=== PATIENT | female | born 1960 | race Caucasian/White ===

== ENCOUNTER → 2017-11-30 | Outpatient (CLI) | payer OTHER ==
--- NOTE | 2017-11-30 15:49 | US ---
EXAMINATION TYPE: US pelvic complete DATE OF EXAM: 11/30/2017 COMPARISON: NONE CLINICAL HISTORY: R60.0 Edema of Lower extremity. TECHNIQUE: Transabdominal (TA) Date of LMP: post menopausal, no HRT. EXAM MEASUREMENTS: Uterus: 6.5 x 3.0 x 5.4 cm Endometrial Stripe: 0.4 cm Right Ovary: 2.2 x 1.6 x 1.4 cm Left Ovary: 2.1 x 1.7 x 2.2 cm 1. Uterus: Anteverted heterogeneous 2. Endometrium: wnl 3. Right Ovary: wnl 4. Left Ovary: wnl 5. Bilateral Adnexa: wnl 6. Posterior cul-de-sac: no free fluid IMPRESSION: 1. Nonspecific uterine heterogeneity. No distinct uterine or adnexal mass.
== END | disposition home or self-care (01) ==
LOC: RADUSWWP 14:45
PROVIDERS: ATTEND Internal Medicine
DX: R60.0 Localized edema (principal)
CPT/HCPCS: 76856

== ENCOUNTER 2018-01-17 05:42 | Day surgery (SDC) | payer OTHER ==
[2018-01-10 13:01] VITALS: BMI 24.8
--- NOTE | 2018-01-16 19:07 | HP ---
HISTORY AND PHYSICAL REASON FOR ADMISSION: Surgery scheduled for 01/17/2018. Aleja Grimes is a 57-year-old patient seen with progressive left shoulder pain. Treatment options were discussed with her. She elected to proceed with arthroscopy. Consent regarding the procedure was obtained. PAST MEDICAL HISTORY: Asthma, hypertension, migraine headaches. PAST SURGICAL HISTORY: Right shoulder arthroscopy, foot surgery, knee arthroscopy. MEDICATIONS: Fioricet/codeine, Topamax, Xanax, and Effexor. ALLERGIES: DILAUDID AND FLAGYL. SOCIAL HISTORY: Patient denies current tobacco use. PHYSICAL EXAMINATION: Evaluation of the left shoulder flexion 150 degrees, abduction 140 degrees, external rotation 60 degrees with some pain and weakness. Tenderness along the anterior lateral acromion and rotator cuff insertion site. Positive impingement sign at 90 degrees. Distal neurovascular exam intact. RADIOGRAPHS: Left shoulder radiographs reveal a type 2 anterior acromion, a lateral downsloping anterior acromion as well with evidence for acromioclavicular joint osteoarthritis. Left shoulder MRI revealed a partial rotator cuff tear. IMPRESSION: Left shoulder impingement with partial rotator cuff tear and acromioclavicular joint osteoarthritis. PLAN: Left shoulder arthroscopy, subacromial decompression, probable arthroscopic rotator cuff repair, possible Denys procedure and debridement. Surgery is scheduled for 01/17/2018. MMODL / IJN: [id number] /
[~2018-01-17 05:42] MED LIST: ceFAZolin IN SWFI 2 GM/20 ML SYRINGE IVP ONE
[2018-01-17] MEDS ORDERED: fentaNYL (PF) 50 MCG/ML 2 ML AMP IV PRN (06:07)
[2018-01-17] MEDS ORDERED: ONDANSETRON 4 MG/2 ML VIAL IVP ONE (06:07)
[2018-01-17] MEDS ORDERED: DEXAMETHASONE SOD PHOSPHATE 10 MG/ML 1 ML VIAL IV ONE (06:07)
[2018-01-17] MEDS ORDERED: LACTATED RINGERS 1,000 ML IV SCH (06:07)
[2018-01-17] MEDS ORDERED: SCOPOLAMINE 1.5MG/72HR PATCH TRANSDERM ONE (06:07)
[2018-01-17] MEDS ORDERED: MIDAZOLAM 2 MG/2 ML VIAL IV PRN (06:07)
[2018-01-17] MEDS ORDERED: LIDOCAINE 1% 20 ML VIAL (10MG/ML) FOR IV START INTRADERMA ONE (07:05)
[2018-01-17] MEDS ORDERED: ROPIVACAINE 5 MG/ML 30 ML VIAL ONE (07:30)
[2018-01-17] MEDS ORDERED: MIDAZOLAM 2 MG/2 ML VIAL ONE (07:30)
[2018-01-17] MEDS ORDERED: fentaNYL (PF) 50 MCG/ML 2 ML AMP ONE (07:30)
[2018-01-17] MEDS ORDERED: LIDOCAINE 1% INJ 10MG/ML (20 ML MDV) ONE (07:30)
[2018-01-17] MEDS ORDERED: PROPOFOL 10 MG/ML 20 ML VIAL IV ONE (07:30)
[2018-01-17] MEDS ORDERED: ePHEDrine SULFATE/0.9% NACL/PF 50 MG/5 ML SYRINGE IV ONE (07:30)
[2018-01-17] MEDS ORDERED: LACTATED RINGERS 1,000 ML IV ONE (08:28)
[2018-01-17 09:06] VITALS: RESP 16; TEMP 97.3
--- NOTE | 2018-01-17 09:13 | P.OP ---
Date of Procedure: 01/17/18 Preoperative Diagnosis: Left shoulder impingement Postoperative Diagnosis: 1. Left shoulder rotator cuff tear 2. Left shoulder impingement 3. Left shoulder acromioclavicular joint osteoarthritis 4. Left shoulder partial long head biceps tendon tear 5. Left shoulder labral tear Procedure(s) Performed: 1. Left shoulder arthroscopic rotator cuff repair 2. Left shoulder arthroscopic subacromial decompression 3. Left shoulder arthroscopic Denys procedure 4. Left shoulder arthroscopic biceps tenotomy 5. Left shoulder arthroscopic debridement labral tear Implants: 15.5 Arthrex swivel lock anchor Anesthesia: GETA, regional (Interscalene block) Surgeon: Khai Ellsworth [employer] Attendant #1: Tony Mukherjee Estimated Blood Loss (ml): 11 Pathology: none sent Condition: stable Disposition: PACU Indications for Procedure: 57-year-old patient seen with progressive left shoulder pain. After treatment options were discussed, she elected to proceed with arthroscopy. Operative Findings: See description of procedure Description of Procedure: Patient underwent an interscalene block by department of anesthesia. The patient was then taken to the operative suite. The patient underwent a general anesthetic by the department of anesthesia. The patient was placed into a lateral position and secured. There was appropriate padding of the bony prominence. Left shoulder was then prepped and draped in normal sterile orthopedic fashion. We placed the extremity in 10 pounds of longitudinal traction. A posterior incision was now made for a posterior working portal site. The trocar and cannula were inserted into the glenohumeral joint. Arthroscopy was initiated. Spinal needle was now inserted anteriorly, to ascertain the anterior working portal site. An incision was now made in that area, a trocar was inserted followed by a probe. Was superficial tearing along the area of the anterior superior labrum. The glenohumeral joint appeared stable with no significant chondromalacia. There was a rotator cuff tear visualized from glenohumeral side. There was partial tearing and hyperemia long head biceps tendon. The posterior and inferior labrum appeared intact. I performed an arthroscopic biceps tenotomy. I debrided the labral tears down to stable tissue. The residual labrum appeared stable. Instruments now removed from glenohumeral joint. Utilizing the posterior working portal site, the trocar and cannula were inserted into the subacromial space. Arthroscopy initiated. I made an incision 2 fingerbreadths lateral to the acromion. I introduced my trocar followed by my ArthroCare ablator. I now began ablating thick subacromial bursal tissue, which exposed the undersurface of the anterior acromion. There was diminished subacromial space. There was a very prominent anterior acromion. A motorized bur was introduced and a subacromial decompression was performed. I also excised some osteophytes off the inferior aspect of the distal clavicle. The AC joint was visualized and noted to be fairly arthritic. The motorized bur was introduced in the anterior portal site and a Denys procedure was performed without difficulty, decompressing the AC joint nicely. I turned my attention to the rotator cuff. There was a 1.5 cm rotator cuff tear. He debrided the margins getting down to stable tendon tissue. I abraded the footprint with a motorized bur. I passed 2 everted mattress sutures through good bites of rotator cuff tendon. I held punch in appropriate position while Duy LANCASTER tapped down. We now passed all 4 limbs of suture through a 5.5 Arthrex swivel lock anchor. I introduced the anchors into the pre-punch hole. Duy LANCASTER appropriate tension all the sutures in Y held the anchor in position and the anchor was introduced into the bone with by Duy LANCASTER. All residual suture limbs were now clipped. We had good compression of the tendon along the entire footprint. I injected 1 mL Renue intra-articular Instruments now removed from the portal sites. All portal sites were approximated with nylon suture. Sterile dressings were applied followed by a shoulder sling. Tony LANCASTER assisted in this case. The patient was awakened, transferred to a bed , and taken to recovery in stable condition.
[2018-01-17 10:22] VITALS: BP 132/73; PULSE 67
== END 2018-01-17 10:29 | disposition home or self-care (01) ==
LOC: OR 05:42
PROVIDERS: ATTEND Orthopaedic Surgery
DX: M75.102 Unspecified rotator cuff tear or rupture of left shoulder, not specified as traumatic (principal); M75.42 Impingement syndrome of left shoulder; M19.012 Primary osteoarthritis, left shoulder; S46.112A Strain of muscle, fascia and tendon of long head of biceps, left arm, initial encounter; S43.492A Other sprain of left shoulder joint, initial encounter; F32.9 Major depressive disorder, single episode, unspecified; F41.9 Anxiety disorder, unspecified; Z87.891 Personal history of nicotine dependence; Z86.73 Personal history of transient ischemic attack (TIA), and cerebral infarction without residual deficits; Z79.899 Other long term (current) drug therapy; Z88.5 Allergy status to narcotic agent; Z88.1 Allergy status to other antibiotic agents
CPT/HCPCS: 64415; 29827; 29824; 29822; C1713; C1894; C1765; J2250; J1100; J2405; J2001; J3010; J2795; J2704; J0690

== ENCOUNTER → 2019-06-04 | Outpatient (CLI) | payer OTHER ==
[2019-06-04 07:52] LABS: Basophils # (A) 0.1 k/uL (0-0.2); Basophils % (A) 1 %; Eosinophils # (A) 0.2 k/uL (0-0.7); Eosinophils % (A) 3 %; HCT 36.7 % (34.0-46.0); HGB 11.9 gm/dL (11.4-16.0); Lymphocytes # (A) 2.4 k/uL (1.0-4.8); Lymphocytes % (A) 36 %; MCH 31.6 pg (25.0-35.0); MCHC 32.5 g/dL (31.0-37.0); MCV 97.3 fL (80.0-100.0); Mean Platelet Volume 7.4; Monocytes # (A) 0.4 k/uL (0-1.0); Monocytes % (A) 6 %; Neutrophils # (A) 3.4 k/uL (1.3-7.7); Neutrophils % (A) 52 %; Platelet Count 247 k/uL (150-450); RBC 3.77 m/uL (3.80-5.40); RDW 13.4 % (11.5-15.5); WBC 6.5 k/uL (3.8-10.6)
[2019-06-04 12:06] LABS: African American GFR (CKD) 71.9 (60.0-200.0); Albumin 4.2 g/dL (3.80-4.90); Albumin/Globulin Ratio 2.21 (1.60-3.17); Anion Gap 5.5 mmol/L (4.00-12.00); Calcium 9.1 mg/dL (8.7-10.3); Carbon Dioxide 29.5 mmol/L (21.6-31.8); Globulin 1.9 g/dL (1.6-3.3); Non-African American GFR(CKD) 62.1 (60.0-200.0); Potassium 3.8 mmol/L (3.5-5.5); Total Bilirubin 0.2 mg/dL (0.3-1.2); Total Protein 6.1 g/dL (6.2-8.2)
[2019-06-04 12:07] LABS: Magnesium 1.8 mg/dL (1.5-2.4)
== END | disposition home or self-care (01) ==
LOC: LABWHC1 07:32
PROVIDERS: ATTEND Psychiatry & Neurology Pain Medicine
DX: Z51.81 Encounter for therapeutic drug level monitoring (principal); R51 Headache
CPT/HCPCS: 36415; 80053; 83735; 85025

== ENCOUNTER 2019-12-18 17:27 | Inpatient (IN) | payer OTHER ==
[2019-12-18] MEDS ORDERED: ACETAMINOPHEN TAB 500 MG TAB PO STA (17:46)
[2019-12-18] MEDS ORDERED: IBUPROFEN 800 MG TAB PO STA (17:50)
[2019-12-18] MEDS ORDERED: ONDANSETRON 4 MG/2 ML VIAL IVP STA (17:50)
[2019-12-18] MEDS ORDERED: PANTOPRAZOLE 40 MG/10 ML VIAL IVP STA (17:50)
--- NOTE | 2019-12-18 17:50 | ED ---
Nausea/Vomiting/Diarrhea HPI - General Chief complaint: Nausea/Vomiting/Diarrhea Stated complaint: Vomiting,Fever,aches Time Seen by Provider: 12/18/19 17:45 Source: patient, RN notes reviewed, old records reviewed Mode of arrival: wheelchair Limitations: no limitations - History of Present Illness MD complaint: nausea, vomiting, diarrhea, abdominal pain, other (Fever) -: days(s) Description of Vomiting: watery Description of Diarrhea: water Associated Abdominal Pain: Yes Location: periumbilical Radiation: none Severity: moderate Severity scale (1-10): 4 Quality: aching Consistency: constant Improves with: none Worsens with: none Associated Symptoms: myalgias, fever/chills, malaise, weakness - Related Data Home Medications Medication Instructions Recorded Confirmed Buta/APAP/Caf/Cod 19-127-37-30 1 cap PO DAILY PRN 07/26/15 12/18/19 [Fioricet w/Cod 36-695-42-30MG] ALPRAZolam [Xanax] 0.5 mg PO DAILY 12/18/19 12/18/19 Aspirin EC [Ecotrin Low Dose] 81 mg PO DAILY 12/18/19 12/18/19 Citalopram Hydrobromide [CeleXA] 20 mg PO DAILY 12/18/19 12/18/19 Dextromethorphan HBr/Quinidine 1 cap PO DAILY 12/18/19 12/18/19 [Nuedexta 20-10 mg Capsule] Lisinopril-Hctz 20-12.5 mg 1 tab PO DAILY 12/18/19 12/18/19 [Zestoretic 20-12.5] Meloxicam [Mobic] 7.5 mg PO DAILY 12/18/19 12/18/19 Multivitamins, Thera [Multivitamin 1 tab PO DAILY 12/18/19 12/18/19 (formulary)] QUEtiapine [SEROquel] 100 mg PO HS 12/18/19 12/18/19 carBAMazepine [TEGretol XR] 400 mg PO BID 12/18/19 12/18/19 Previous Rx's Medication Instructions Recorded Levofloxacin [Levaquin] 750 mg PO DAILY 7 Days #7 tab 12/21/19 Allergies Allergy/AdvReac Type Severity Reaction Status Date / Time hydromorphone HCl Allergy Vomiting Verified 12/18/19 19:44 [From Dilaudid] metronidazole [From Flagyl] AdvReac Dyspnea Verified 12/18/19 19:44 wheat AdvReac Diarrhea Verified 12/18/19 19:44 Review of Systems ROS Statement: Those systems with pertinent positive or pertinent negative responses have been documented in the HPI. ROS Other: All systems not noted in ROS Statement are negative. Past Medical History Past Medical History: Asthma, CVA/TIA, GERD/Reflux, Skin Disorder Additional Past Medical History / Comment(s): GRANULOMA ANNULARE (SKIN CONDITION), CHRONIC MIGRAINES; fell this summer & had MRI; it showed a minor stroke "Brain Stem, no difficiencies" no blood thinners needed. History of Any Multi-Drug Resistant Organisms: None Reported Past Surgical History: Orthopedic Surgery Additional Past Surgical History / Comment(s): KNEE AND TOE SURGERY AT 12 AND 14 YRS OLD. RT ROTATOR CUFF REPAIR 07/28/15. COLONOSCOPY, EGD Past Anesthesia/Blood Transfusion Reactions: Motion Sickness, Postoperative Nausea & Vomiting (PONV) Past Psychological History: Anxiety, Depression Smoking Status: Never smoker Past Alcohol Use History: Occasional Past Drug Use History: Marijuana - Past Family History Mother Family Medical History: Cancer Additional Family Medical History / Comment(s): BREAST AND LUNG CANCER General Exam Limitations: no limitations General appearance: alert, in no apparent distress Head exam: Present: atraumatic, normocephalic, normal inspection Eye exam: Present: normal appearance, PERRL, EOMI. Absent: scleral icterus, conjunctival injection, periorbital swelling ENT exam: Present: normal exam, mucous membranes moist Neck exam: Present: normal inspection. Absent: tenderness, meningismus, lymphadenopathy Respiratory exam: Present: normal lung sounds bilaterally. Absent: respiratory distress, wheezes, rales, rhonchi, stridor Cardiovascular Exam: Present: regular rate, normal rhythm, normal heart sounds. Absent: systolic murmur, diastolic murmur, rubs, gallop, clicks GI/Abdominal exam: Present: soft, normal bowel sounds. Absent: distended, tenderness, guarding, rebound, rigid Extremities exam: Present: normal inspection, full ROM, normal capillary refill. Absent: tenderness, pedal edema, joint swelling, calf tenderness Back exam: Present: normal inspection Neurological exam: Present: alert, oriented X3, CN II-XII intact Psychiatric exam: Present: normal affect, normal mood Skin exam: Present: warm, dry, intact, normal color. Absent: rash Course Vital Signs 12/18/19 12/18/19 12/18/19 17:38 19:13 20:36 Temperature 100.6 F H 103.6 F H 100.1 F H Pulse Rate 97 79 71 Respiratory 18 18 18 Rate Blood Pressure 131/81 154/83 125/79 O2 Sat by Pulse 100 97 98 Oximetry - Reevaluation(s) Reevaluation #1: Medical record is reviewed Patient reevaluated, symptoms are significantly improved Patient informed of results and questions are answered Medical Decision Making - Medical Decision Making 59 female DF for evaluation of fever persistent nausea vomiting and diarrhea will admit, rule out coronavirus - Lab Data Result diagrams: 12/18/19 17:57 12/19/19 07:32 Lab Results 12/18/19 12/18/19 12/18/19 Range/Units 17:57 17:57 17:57 WBC 10.5 (3.8-10.6) k/uL RBC 3.65 L (3.80-5.40) m/uL Hgb 11.8 (11.4-16.0) gm/dL Hct 34.7 (34.0-46.0) % MCV 95.1 (80.0-100.0) fL MCH 32.3 (25.0-35.0) pg MCHC 34.0 (31.0-37.0) g/dL RDW 12.7 (11.5-15.5) % Plt Count 249 (150-450) k/uL Neutrophils % 89 % Lymphocytes % 6 % Monocytes % 3 % Eosinophils % 1 % Basophils % 0 % Neutrophils # 9.3 H (1.3-7.7) k/uL Lymphocytes # 0.7 L (1.0-4.8) k/uL Monocytes # 0.4 (0-1.0) k/uL Eosinophils # 0.1 (0-0.7) k/uL Basophils # 0.0 (0-0.2) k/uL PT (9.0-12.0) sec INR (<1.2) D-Dimer (<0.60) mg/L FEU Sodium 133 L (137-145) mmol/L Potassium 3.2 L (3.5-5.1) mmol/L Chloride 97 L (98-107) mmol/L Carbon Dioxide 25 (22-30) mmol/L Anion Gap 11 mmol/L BUN 12 (7-17) mg/dL Creatinine 0.96 (0.52-1.04) mg/dL Est GFR (CKD-EPI)AfAm 75 (>60 ml/min/1.73 sqM) Est GFR (CKD-EPI)NonAf 65 (>60 ml/min/1.73 sqM) Glucose 140 H (74-99) mg/dL Plasma Lactic Acid Atif 2.0 (0.7-2.0) mmol/L Calcium 9.6 (8.4-10.2) mg/dL Magnesium 1.9 (1.6-2.3) mg/dL Ferritin 259.3 (10.0-291.0) ng/mL Total Bilirubin 0.5 (0.2-1.3) mg/dL AST 28 (14-36) U/L ALT 17 (4-34) U/L Alkaline Phosphatase 124 (38-126) U/L Lactate Dehydrogenase 467 (313-618) U/L Creatine Kinase (30-135) U/L C-Reactive Protein 191.7 H (<10.0) mg/L Total Protein 7.5 (6.3-8.2) g/dL Albumin 4.3 (3.5-5.0) g/dL Procalcitonin (0.02-0.09) ng/mL Urine Color Urine Appearance (Clear) Urine pH (5.0-8.0) Ur Specific Curlew (1.001-1.035) Urine Protein (Negative) Urine Glucose (UA) (Negative) Urine Ketones (Negative) Urine Blood (Negative) Urine Nitrite (Negative) Urine Bilirubin (Negative) Urine Urobilinogen (<2.0) mg/dL Ur Leukocyte Esterase (Negative) Urine RBC (0-5) /hpf Urine WBC (0-5) /hpf Ur Squamous Epith Cells (0-4) /hpf Coronavirus (PCR) (Not Detected) Influenza Type A RNA (Not Detectd) Influenza Type B (PCR) (Not Detectd) 12/18/19 12/18/19 12/18/19 Range/Units 17:57 22:34 22:34 WBC (3.8-10.6) k/uL RBC (3.80-5.40) m/uL Hgb (11.4-16.0) gm/dL Hct (34.0-46.0) % MCV (80.0-100.0) fL MCH (25.0-35.0) pg MCHC (31.0-37.0) g/dL RDW (11.5-15.5) % Plt Count (150-450) k/uL Neutrophils % % Lymphocytes % % Monocytes % % Eosinophils % % Basophils % % Neutrophils # (1.3-7.7) k/uL Lymphocytes # (1.0-4.8) k/uL Monocytes # (0-1.0) k/uL Eosinophils # (0-0.7) k/uL Basophils # (0-0.2) k/uL PT 10.9 (9.0-12.0) sec INR 1.1 (<1.2) D-Dimer 0.25 (<0.60) mg/L FEU Sodium (137-145) mmol/L Potassium (3.5-5.1) mmol/L Chloride (98-107) mmol/L Carbon Dioxide (22-30) mmol/L Anion Gap mmol/L BUN (7-17) mg/dL Creatinine (0.52-1.04) mg/dL Est GFR (CKD-EPI)AfAm (>60 ml/min/1.73 sqM) Est GFR (CKD-EPI)NonAf (>60 ml/min/1.73 sqM) Glucose (74-99) mg/dL Plasma Lactic Acid Atif (0.7-2.0) mmol/L Calcium (8.4-10.2) mg/dL Magnesium (1.6-2.3) mg/dL Ferritin (10.0-291.0) ng/mL Total Bilirubin (0.2-1.3) mg/dL AST (14-36) U/L ALT (4-34) U/L Alkaline Phosphatase (38-126) U/L Lactate Dehydrogenase (313-618) U/L Creatine Kinase 85 (30-135) U/L C-Reactive Protein (<10.0) mg/L Total Protein (6.3-8.2) g/dL Albumin (3.5-5.0) g/dL Procalcitonin (0.02-0.09) ng/mL Urine Color Urine Appearance (Clear) Urine pH (5.0-8.0) Ur Specific Curlew (1.001-1.035) Urine Protein (Negative) Urine Glucose (UA) (Negative) Urine Ketones (Negative) Urine Blood (Negative) Urine Nitrite (Negative) Urine Bilirubin (Negative) Urine Urobilinogen (<2.0) mg/dL Ur Leukocyte Esterase (Negative) Urine RBC (0-5) /hpf Urine WBC (0-5) /hpf Ur Squamous Epith Cells (0-4) /hpf Coronavirus (PCR) Not Detected (Not Detected) Influenza Type A RNA (Not Detectd) Influenza Type B (PCR) (Not Detectd) 12/18/19 12/18/19 12/19/19 Range/Units 22:34 23:40 01:57 WBC (3.8-10.6) k/uL RBC (3.80-5.40) m/uL Hgb (11.4-16.0) gm/dL Hct (34.0-46.0) % MCV (80.0-100.0) fL MCH (25.0-35.0) pg MCHC (31.0-37.0) g/dL RDW (11.5-15.5) % Plt Count (150-450) k/uL Neutrophils % % Lymphocytes % % Monocytes % % Eosinophils % % Basophils % % Neutrophils # (1.3-7.7) k/uL Lymphocytes # (1.0-4.8) k/uL Monocytes # (0-1.0) k/uL Eosinophils # (0-0.7) k/uL Basophils # (0-0.2) k/uL PT (9.0-12.0) sec INR (<1.2) D-Dimer (<0.60) mg/L FEU Sodium (137-145) mmol/L Potassium (3.5-5.1) mmol/L Chloride (98-107) mmol/L Carbon Dioxide (22-30) mmol/L Anion Gap mmol/L BUN (7-17) mg/dL Creatinine (0.52-1.04) mg/dL Est GFR (CKD-EPI)AfAm (>60 ml/min/1.73 sqM) Est GFR (CKD-EPI)NonAf (>60 ml/min/1.73 sqM) Glucose (74-99) mg/dL Plasma Lactic Acid Atif (0.7-2.0) mmol/L Calcium (8.4-10.2) mg/dL Magnesium (1.6-2.3) mg/dL Ferritin (10.0-291.0) ng/mL Total Bilirubin (0.2-1.3) mg/dL AST (14-36) U/L ALT (4-34) U/L Alkaline Phosphatase (38-126) U/L Lactate Dehydrogenase (313-618) U/L Creatine Kinase (30-135) U/L C-Reactive Protein (<10.0) mg/L Total Protein (6.3-8.2) g/dL Albumin (3.5-5.0) g/dL Procalcitonin 0.14 H (0.02-0.09) ng/mL Urine Color Yellow Urine Appearance Clear (Clear) Urine pH 6.0 (5.0-8.0) Ur Specific Curlew >1.050 H (1.001-1.035) Urine Protein Trace H (Negative) Urine Glucose (UA) Negative (Negative) Urine Ketones 1+ H (Negative) Urine Blood Large H (Negative) Urine Nitrite Negative (Negative) Urine Bilirubin Negative (Negative) Urine Urobilinogen <2.0 (<2.0) mg/dL Ur Leukocyte Esterase Large H (Negative) Urine RBC 44 H (0-5) /hpf Urine WBC 39 H (0-5) /hpf Ur Squamous Epith Cells 2 (0-4) /hpf Coronavirus (PCR) (Not Detected) Influenza Type A RNA Not Detected (Not Detectd) Influenza Type B (PCR) Not Detected (Not Detectd) - EKG Data -: EKG Interpreted by Me (EKG shows sinus rhythm of 77. OR 126 QRS 88 QTc 432) Disposition Clinical Impression: Dehydration, Nausea & vomiting, Weakness, Fever Narrative: Rule out coronavirus Disposition: ADMITTED IP TO THIS HOSP Condition: Stable Is patient prescribed a controlled substance at d/c from ED?: No
[2019-12-18 18:26] LABS: Basophils % (A) 0 %; Eosinophils # (A) 0.1 k/uL (0-0.7); Eosinophils % (A) 1 %; HCT 34.7 % (34.0-46.0); HGB 11.8 gm/dL (11.4-16.0); Lymphocytes # (A) 0.7 k/uL (1.0-4.8); Lymphocytes % (A) 6 %; MCH 32.3 pg (25.0-35.0); MCV 95.1 fL (80.0-100.0); Mean Platelet Volume 7.2; Monocytes # (A) 0.4 k/uL (0-1.0); Monocytes % (A) 3 %; Neutrophils # (A) 9.3 k/uL (1.3-7.7); Neutrophils % (A) 89 %; Platelet Count 249 k/uL (150-450); RBC 3.65 m/uL (3.80-5.40); RDW 12.7 % (11.5-15.5); WBC 10.5 k/uL (3.8-10.6)
[2019-12-18] MEDS ORDERED: MORPHINE SULFATE 4 MG/ML SYRINGE IVP STA (18:31)
[2019-12-18] MEDS ORDERED: DIAZEPAM 5 MG/ML 2 ML INJ IVP STA (18:31)
[2019-12-18 18:36] LABS: Albumin 4.3 g/dL (3.5-5.0); Calcium 9.6 mg/dL (8.4-10.2); Magnesium 1.9 mg/dL (1.6-2.3); Potassium 3.2 mmol/L (3.5-5.1); Total Bilirubin 0.5 mg/dL (0.2-1.3); Total Protein 7.5 g/dL (6.3-8.2)
[2019-12-18 18:56] LABS: C Reactive Protein 191.7 mg/L (<10.0)
--- NOTE | 2019-12-18 19:31 | XR ---
EXAMINATION TYPE: XR abdomen acute w cxr DATE OF EXAM: 12/18/2019 COMPARISON: NONE HISTORY: Body aches TECHNIQUE: 4 views FINDINGS: There is no sign of intestinal obstruction or pneumoperitoneum. Fecal pattern is normal. Th ere are no pathologic calcifications over the kidneys. There is increased density at the superior right pulmonary hilum that measures almost 3 cm. Heart siz e is normal. There is no pleural effusion. There is no heart failure. There is no evidence of abdominal mass. IMPRESSION: Nonacute abdomen. Possible right-sided hilar mass. Follow-up recommended.
[2019-12-18] MEDS: SODIUM CHLORIDE 0.9% 1,000 ML IV SCH (20:50)
[2019-12-18] MEDS: SODIUM CHLORIDE 0.9% 500 ML 500 ML IV SCH ×3 (20:58→22:18)
[2019-12-18] MEDS ORDERED: POTASSIUM CHLORIDE ER 20 MEQ TAB.ER PO STA (22:24)
[2019-12-18] MEDS ORDERED: RX INFO: IV CONTRAST WAS GIVEN 1 EACH MISC MISCELLANE PRN (22:24)
--- NOTE | 2019-12-18 22:25 | P.HPIM ---
History of Present Illness H&P Date: 12/18/19 The patient is a 59-year-old female with a PMH of hypertension, mild intermittent asthma, chronic migraines, and history of CVA who presented to the ED with complaints of fever, lethargy, nausea, and vomiting. The patient reports that her symptoms started yesterday morning. She reports having thrown up 10-15 times along with 4-5 episodes of diarrhea. Denied blood or bile in the vomitus. Denied sick contacts. Denied chest pain, shortness of breath, or cough. Denied visual disturbances, weakness, numbness, or tingling. Denied history of drug use. Reports a diffuse mild headache, similar in nature to her prior migraines. She reported recent travel to [place] by car with her family, where they stayed at hotels and visited multiple public areas. In the emergency room, the patient's vitals were T-max 103.6, BP 154/83, pulse 79, and saturating 98% on room air. Chest x-ray showed a 3 cm density in the superior right pulmonary hilum with no other abnormalities noted. EKG revealed normal sinus rhythm at 77 bpm with no acute ST/T-wave changes noted as reviewed by me. Laboratory evaluation revealed a CRP of 191.7, lactic acid 2.0, sodium 133, potassium 3.2, chloride 97, WBC count 10.5. Review of Systems Pertinent positives and negatives as discussed in HPI, a complete review of systems was performed and all other systems are negative. Past Medical History Past Medical History: Asthma, CVA/TIA, GERD/Reflux, Skin Disorder Additional Past Medical History / Comment(s): GRANULOMA ANNULARE (SKIN CONDITION), CHRONIC MIGRAINES; fell this summer & had MRI; it showed a minor stroke "Brain Stem, no difficiencies" no blood thinners needed. History of Any Multi-Drug Resistant Organisms: None Reported Past Surgical History: Orthopedic Surgery Additional Past Surgical History / Comment(s): KNEE AND TOE SURGERY AT 12 AND 14 YRS OLD. RT ROTATOR CUFF REPAIR 07/28/15. COLONOSCOPY, EGD Past Anesthesia/Blood Transfusion Reactions: Motion Sickness, Postoperative Nausea & Vomiting (PONV) Past Psychological History: Anxiety, Depression Smoking Status: Never smoker Past Alcohol Use History: Occasional Past Drug Use History: Marijuana - Past Family History Mother Family Medical History: Cancer Additional Family Medical History / Comment(s): BREAST AND LUNG CANCER Medications and Allergies Home Medications Medication Instructions Recorded Confirmed Type Buta/APAP/Caf/Cod [id number] 1 cap PO DAILY PRN 07/26/15 12/18/19 History [Fioricet w/Cod 68-795-90-30MG] ALPRAZolam [Xanax] 0.5 mg PO DAILY 12/18/19 12/18/19 History Aspirin EC [Ecotrin Low Dose] 81 mg PO DAILY 12/18/19 12/18/19 History Citalopram Hydrobromide [CeleXA] 20 mg PO DAILY 12/18/19 12/18/19 History Dextromethorphan HBr/Quinidine 1 cap PO DAILY 12/18/19 12/18/19 History [Nuedexta 20-10 mg Capsule] Lisinopril-Hctz 20-12.5 mg 1 tab PO DAILY 12/18/19 12/18/19 History [Zestoretic 20-12.5] Meloxicam [Mobic] 7.5 mg PO DAILY 12/18/19 12/18/19 History Multivitamins, Thera [Multivitamin 1 tab PO DAILY 12/18/19 12/18/19 History (formulary)] QUEtiapine [SEROquel] 100 mg PO HS 12/18/19 12/18/19 History carBAMazepine [TEGretol XR] 400 mg PO BID 12/18/19 12/18/19 History Allergies Allergy/AdvReac Type Severity Reaction Status Date / Time hydromorphone HCl Allergy Vomiting Verified 12/18/19 19:44 [From Dilaudid] metronidazole [From Flagyl] AdvReac Dyspnea Verified 12/18/19 19:44 wheat AdvReac Diarrhea Verified 12/18/19 19:44 Physical Exam Vitals: Vital Signs Temp Pulse Resp BP Pulse Ox 12/18/19 20:36 100.1 F H 71 18 125/79 98 12/18/19 19:13 103.6 F H 79 18 154/83 97 12/18/19 17:38 100.6 F H 97 18 131/81 100 Intake and Output 12/18/19 12/18/19 12/18/19 06:59 14:59 22:59 Other: Weight 73.936 kg General: non toxic, no distress, appears at stated age, normal weight Derm: no unusual rashes/lesions no unusual ecchymoses, warm, dry Head: atraumatic, normocephalic, symmetric Eyes: EOMI, no lid lag, anicteric sclera, pupils equal round reactive to light ENT: Nose and ears atraumatic, no thrush, no pharyngeal erythema Neck: No thyromegaly, no cervical lymphadenopathy, trachea midline, supple Mouth: no lip lesion, mucus membranes moist Cardiovascular: S1S2 reg, no murmur, positive posterior tibial pulse bilateral, no edema, capillary refill less than 2 seconds Lungs: CTA bilateral, no rhonchi, no rales , no accessory muscle use Abdominal: soft, nontender to palpation, no guarding, no appreciable organomegaly, normal bowel sounds Ext: no gross muscle atrophy, muscle strength 5 out of 5 in all 4 extremities grossly, no contractures, Neuro: CN II-XI grossly intact, light touch intact all 4 extremities, finger to nose within normal limits, Kernig's and Brudzinski's negative Psych: Alert, oriented, appropriate affect Results CBC & Chem 7: 12/18/19 17:57 12/18/19 17:57 Labs: Abnormal Lab Results - Last 24 Hours (Table) 12/18/19 12/18/19 Range/Units 17:57 17:57 RBC 3.65 L (3.80-5.40) m/uL Neutrophils # 9.3 H (1.3-7.7) k/uL Lymphocytes # 0.7 L (1.0-4.8) k/uL Sodium 133 L (137-145) mmol/L Potassium 3.2 L (3.5-5.1) mmol/L Chloride 97 L (98-107) mmol/L Glucose 140 H (74-99) mg/dL C-Reactive Protein 191.7 H (<10.0) mg/L Assessment and Plan Plan: Fever with nausea, vomiting, r/o COVID -Obtain UA -Check ferritin, LDH, BNP, CPK, pro calcitonin, d-dimer, PT/INR, and influenza -Continue normal saline IV fluids -Obtain CT chest to further evaluate right hilar mass -Tylenol when necessary -F/u Blood cultures and Covid-testing Right hilar mass -Follow-up computed tomography scan of chest Hypokalemia -Replace and monitor Hypochloremic hyponatremia -Likely due to poor oral intake in setting of nausea and vomiting -Continue with IV fluids as above Chronic conditions: Hypertension, history of CVA -Continue with home lisinopril and hydrochlorothiazide -Continue with home aspirin DVT prophylaxis -Heparin subq Discussed with: Patient Anticipated discharge date: 2-[address]: Home A total of 40 minutes was spent on the care of this complex patient more than 50% of the time was spent in counseling and care coordination.
[2019-12-18 23:02] LABS: D-Dimer 0.25 mg/L FEU (<0.60); INR 1.1 (<1.2)
[2019-12-18 23:03] LABS: Prothrombin Time 10.9 sec (9.0-12.0)
--- NOTE | 2019-12-18 23:34 | CT ---
EXAMINATION TYPE: CT ChestAbdPelvis w con DATE OF EXAM: 12/18/2019 COMPARISON: None HISTORY: pain CT DLP: 877.1 mGycm Automated exposure control for dose reduction was used. CONTRAST: Performed with IV Contrast, patient injected with 100 mL of Isovue 300. There is 5 cm area of airspace consolidation in the anterior segment right upper lobe adjacent to the chest wall. There are air bronchograms. There is no pneumothorax. Lung bases are clear. There is no pleural effusion. There is no pericardial effusion. There is no mediastinal adenopathy. There are no hilar masses. Liver spleen stomach pancreas gallbladder appear normal. Bile ducts are not dilated. There is no adrenal mass. Kidneys show satisfactory contrast opacification. There is no hydronephrosi s. Ureters are not dilated. There is no retroperitoneal adenopathy. Appendix is not definitely seen. There is no sign of thickened appendix. Delayed images show normal renal excretion. There is no mesenteric edema. There is no ascites or free air. There is no bowel obstruction. Thoracic and lumbar spine are intact. Bony pelvis is intact. Hip joints appear normal. Sternum is int act.The ribs appear intact. IMPRESSION: Airspace infiltrate anterior right upper lobe consistent with bronchopneumonia. Negative CT scan of t he abdomen and pelvis.
[2019-12-19 01:21] LABS: Ferritin 259.3 ng/mL (10.0-291.0)
[2019-12-19] MEDS: ACETAMINOPHEN TAB 325 MG TAB PO PRN ×4 (01:59→20:30)
[2019-12-19 02:16] LABS: Appearance,Urine Clear (Clear); Bilirubin,Urine Negative (Negative); Blood,Urine Large (Negative); Color,Urine Yellow; Glucose,Urine (UA) Negative (Negative); Ketones,Urine 1+ (Negative); Leukocyte Esterase,Urine Large (Negative); Nitrite,Urine Negative (Negative); Protein,Urine Trace (Negative); RBC,Urine 44 /hpf (0-5); Specific Gravity,Urine >1.050 (1.001-1.035); Squamous Epithelial Cell,Urine 2 /hpf (0-4); Urobilinogen,Urine <2.0 mg/dL (<2.0); WBC,Urine 39 /hpf (0-5)
[2019-12-19] MEDS: SODIUM CHLORIDE 0.9% 1,000 ML IV SCH ×3 (04:25→23:19)
[2019-12-19] MEDS ORDERED: AZITHROMYCIN 500 MG in SODIUM CHLORIDE 0.9% 250 ML IVPB STA (05:07)
[2019-12-19] MEDS: ASPIRIN 81 MG PO SCH (07:49)
[2019-12-19] MEDS: carBAMazepine 400 MG TAB.ER.12H PO SCH ×2 (07:49→20:30)
[2019-12-19] MEDS: HEPARIN SODIUM,PORCINE 5,000 UNIT/ML 1 ML VIAL SQ SCH ×2 (07:50→15:20)
[2019-12-19] MEDS: LISINOPRIL-HCTZ 20-12.5 MG 1 EACH TAB PO SCH (07:50)
[2019-12-19 08:28] LABS: Calcium 8.4 mg/dL (8.4-10.2); Potassium 3.5 mmol/L (3.5-5.1)
[2019-12-19] MEDS: BUTA/APAP/CAF/COD 50-325-40-30 CAP PO PRN ×3 (08:31→20:30)
[2019-12-19] MEDS: ONDANSETRON 4 MG/2 ML VIAL IVP PRN ×3 (08:31→20:29)
[2019-12-19] MEDS ORDERED: PANTOPRAZOLE 40 MG/10 ML VIAL IV SCH (09:00)
--- NOTE | 2019-12-19 17:05 | P.PN ---
Subjective Progress Note Date: 12/19/19 Patient was seen and examined. No acute events overnight. Patient does report nausea and vomiting. Tolerating a little bit of clear liquids. She denies any chest pain, shortness breath or palpitations. No cough. No dysuria. Objective - Vital Signs Vital signs: Vital Signs Temp 101 F H 12/19/19 14:30 Pulse 90 12/19/19 14:30 Resp 17 12/19/19 14:30 BP 169/85 12/19/19 14:30 Pulse Ox 99 12/19/19 14:30 Intake & Output 12/18/19 12/19/19 12/19/19 18:59 06:59 18:59 Weight 73.936 kg 73.936 kg Other: Voiding Method Toilet # Voids 3 3 - Exam General: [non toxic], [no distress], [appears at stated age] Derm: [warm], [dry] Head: [atraumatic], [normocephalic], [symmetric] Eyes: [EOMI], [no lid lag], [anicteric sclera] Mouth: [no lip lesion], [mucus membranes moist] Cardiovascular: [S1S2 reg], [no murmur], [positive posterior tibial pulse bilateral], Lungs: [CTA bilateral], [no rhonchi, no rales] , [no accessory muscle use] Abdominal: [soft], [ nontender to palpation], [no guarding], [no appreciable organomegaly] Ext: [no gross muscle atrophy], [no edema], [no contractures] Neuro: [ CN II-XI grossly intact], [no focal neuro deficits] Psych: [Alert], [oriented], [appropriate affect] - Labs CBC & Chem 7: 12/18/19 17:57 12/19/19 07:32 Labs: Abnormal Lab Results - Last 24 Hours (Table) 12/18/19 12/18/19 12/18/19 Range/Units 17:57 17:57 22:34 RBC 3.65 L (3.80-5.40) m/uL Neutrophils # 9.3 H (1.3-7.7) k/uL Lymphocytes # 0.7 L (1.0-4.8) k/uL Sodium 133 L (137-145) mmol/L Potassium 3.2 L (3.5-5.1) mmol/L Chloride 97 L (98-107) mmol/L Glucose 140 H (74-99) mg/dL C-Reactive Protein 191.7 H (<10.0) mg/L Procalcitonin 0.14 H (0.02-0.09) ng/mL Ur Specific [place] (1.001-1.035) Urine Protein (Negative) Urine Ketones (Negative) Urine Blood (Negative) Ur Leukocyte Esterase (Negative) Urine RBC (0-5) /hpf Urine WBC (0-5) /hpf 12/19/19 12/19/19 Range/Units 01:57 07:32 RBC (3.80-5.40) m/uL Neutrophils # (1.3-7.7) k/uL Lymphocytes # (1.0-4.8) k/uL Sodium 135 L (137-145) mmol/L Potassium (3.5-5.1) mmol/L Chloride (98-107) mmol/L Glucose 123 H (74-99) mg/dL C-Reactive Protein (<10.0) mg/L Procalcitonin (0.02-0.09) ng/mL Ur Specific [place] >1.050 H (1.001-1.035) Urine Protein Trace H (Negative) Urine Ketones 1+ H (Negative) Urine Blood Large H (Negative) Ur Leukocyte Esterase Large H (Negative) Urine RBC 44 H (0-5) /hpf Urine WBC 39 H (0-5) /hpf Microbiology - Last 24 Hours (Table) 12/19/19 01:57 Urine Culture - Preliminary Urine,Catheterized Assessment and Plan Assessment: Right upper lobe bronchopneumonia -Continue azithromycin and Rocephin. -Tylenol as needed for fever -Obtain sputum culture -Follow pulmonology consultation Nausea and vomiting -Likely related to above infection -Zofran as needed -Clear liquid diet and advance as tolerated Abnormal urinalysis -Positive leukocyte esterase -Follow urine culture -Continue Rocephin Hyponatremia -Likely due to poor oral intake in setting of nausea and vomiting -Continue with IV fluids as above Chronic conditions: Hypertension, history of CVA -Continue with home lisinopril and hydrochlorothiazide -Continue with home aspirin DVT prophylaxis -Heparin subq Resolved: Hypokalemia
[2019-12-19] MEDS: QUEtiapine 100 MG TAB PO SCH (20:30)
[2019-12-20] MEDS: ONDANSETRON 4 MG/2 ML VIAL IVP PRN ×3 (01:49→17:17)
[2019-12-20] MEDS: BUTA/APAP/CAF/COD 50-325-40-30 CAP PO PRN ×3 (01:49→17:23)
[2019-12-20] MEDS: HEPARIN SODIUM,PORCINE 5,000 UNIT/ML 1 ML VIAL SQ SCH ×4 (01:50→23:22)
[2019-12-20] MEDS: ACETAMINOPHEN TAB 325 MG TAB PO PRN ×2 (01:56→08:07)
[2019-12-20] MEDS: SODIUM CHLORIDE 0.9% 1,000 ML IV SCH ×3 (04:38→20:09)
[2019-12-20] MEDS: AZITHROMYCIN 500 MG TAB PO SCH (05:07)
[2019-12-20] MEDS: ASPIRIN 81 MG PO SCH (08:07)
[2019-12-20] MEDS: PANTOPRAZOLE 40 MG TABLET PO SCH (08:08)
[2019-12-20] MEDS: carBAMazepine 400 MG TAB.ER.12H PO SCH ×2 (08:29→20:31)
[2019-12-20] MEDS: LISINOPRIL-HCTZ 20-12.5 MG 1 EACH TAB PO SCH (08:29)
--- NOTE | 2019-12-20 12:27 | P.PN ---
Subjective Progress Note Date: 12/20/19 Patient was seen and examined. No acute events overnight. Patient does report improved nausea and no vomiting today. Tolerating a little bit of clear liquids requesting diet change. She denies any chest pain, shortness breath or palpitations. No cough. No dysuria. Objective - Vital Signs Vital signs: Vital Signs Temp 100.3 F H 12/20/19 07:00 Pulse 79 12/20/19 07:00 Resp 18 12/20/19 07:00 BP 134/78 12/20/19 07:00 Pulse Ox 95 12/20/19 07:00 Intake & Output 12/19/19 12/20/19 12/20/19 18:59 06:59 18:59 Output Total 50 Balance -50 Output: Emesis 50 Other: Voiding Method Toilet # Voids 3 3 - Exam General: [non toxic], [no distress], [appears at stated age] Derm: [warm], [dry] Head: [atraumatic], [normocephalic], [symmetric] Eyes: [EOMI], [no lid lag], [anicteric sclera] Mouth: [no lip lesion], [mucus membranes moist] Cardiovascular: [S1S2 reg], [no murmur], [positive posterior tibial pulse bilateral], Lungs: [CTA bilateral], [no rhonchi, no rales] , [no accessory muscle use] Abdominal: [soft], [ nontender to palpation], [no guarding], [no appreciable organomegaly] Ext: [no gross muscle atrophy], [no edema], [no contractures] Neuro: [ CN II-XI grossly intact], [no focal neuro deficits] Psych: [Alert], [oriented], [appropriate affect] - Labs CBC & Chem 7: 12/18/19 17:57 12/19/19 07:32 Labs: Microbiology - Last 24 Hours (Table) 12/19/19 01:57 Urine Culture - Final Urine,Catheterized 12/18/19 17:57 Blood Culture - Preliminary Blood No Growth after 24 hours Assessment and Plan Assessment: Right upper lobe bronchopneumonia -Continue azithromycin and Rocephin. -Tylenol as needed for fever -Obtain sputum culture -Follow pulmonology consultation Nausea and vomiting -Likely related to above infection -Zofran as needed -Attempt a low-salt diet Abnormal urinalysis -Positive leukocyte esterase -Follow urine culture -Continue Rocephin Hyponatremia -Likely due to poor oral intake in setting of nausea and vomiting -Continue with IV fluids as above Chronic conditions: Hypertension, history of CVA -Continue with home lisinopril and hydrochlorothiazide -Continue with home aspirin DVT prophylaxis -Heparin subq Resolved: Hypokalemia [Patient admitted for pneumonia. Feeling better. Diet will be advanced today. Continue to spike fever. She is pending clinical improvement. Likely DC in 1- 2 days.]
--- NOTE | 2019-12-20 12:58 | P.CNPUL ---
History of Present Illness Consult date: 12/19/19 Reason for consult: pneumonia History of present illness: 59-year-old female patient, presented to the ED with fever and lethargy nausea and vomiting. She is known to have mild intermittent asthma and migraines. She was having also episodes of diarrhea and she can recall at least 4-5 episodes and she has thrown up at least 10-15 times prior to admission. No chest pain. No significant shortness of breath. She had a positive travel history to [facility] with her family is staying in hotels and his multiple public areas. Nevertheless, the Boy 19 evaluation came back negative. She was having high-grade fever with a temperature of 103.6. Pulse ox was 90% on room air and she was hemodynamically stable. Chest x-ray showed a right suprahilar density measuring 3 cm in size and following that the patient was given a CAT scan of the chest abdomen and pelvis on the CAT scan showed a 5 cm airspace disease consolidation anterior segment of the right upper lobe and there are also air bronchograms. No pleural effusion. No pericardial effusion. On the central lymphadenopathy. CAT scan of the abdomen was negative. The patient was started on a combination of Rocephin and Zithromax. The pro-calcitonin level was 0.14. The urine analysis was also abnormal. Influenza screen was negative. Review of Systems Constitutional: Reports fever, Reports lethargy, Denies chills Eyes: denies as per HPI, denies blurred vision, denies bulging eye, denies decreased vision, denies diplopia, denies discharge, denies dry eye, denies irritation, denies itching, denies pain, denies photophobia, denies loss of peripheral vision, denies loss of vision, denies tunnel vision/blind spots Ears: deny: decreased hearing, ear discharge, earache, tinnitus Ears, nose, mouth and throat: Reports as per HPI Breasts: absent: as per HPI, change in shape, gynecomastia, masses, nipple discharge, pain, skin changes, swelling Cardiovascular: Denies chest pain, Denies shortness of breath Respiratory: Reports as per HPI Gastrointestinal: Reports diarrhea, Reports nausea, Reports vomiting Genitourinary: Reports as per HPI Menstruation: Reports as per HPI Musculoskeletal: Reports as per HPI Musculoskeletal: absent: ankle pain, ankle stiffness, ankle swelling Integumentary: Reports as per HPI Neurological: Reports as per HPI Psychiatric: Reports as per HPI Endocrine: Reports as per HPI Hematologic/Lymphatic: Reports as per HPI Allergic/Immunologic: Reports as per HPI Past Medical History Past Medical History: Asthma, CVA/TIA, GERD/Reflux, Skin Disorder Additional Past Medical History / Comment(s): GRANULOMA ANNULARE (SKIN CONDITION), CHRONIC MIGRAINES; fell this summer & had MRI; it showed a minor stroke "Brain Stem, no difficiencies" no blood thinners needed. History of Any Multi-Drug Resistant Organisms: None Reported Past Surgical History: Orthopedic Surgery Additional Past Surgical History / Comment(s): KNEE AND TOE SURGERY AT 12 AND 14 YRS OLD. RT ROTATOR CUFF REPAIR 07/28/15. COLONOSCOPY, EGD Past Anesthesia/Blood Transfusion Reactions: Motion Sickness, Postoperative Nausea & Vomiting (PONV) Past Psychological History: Anxiety, Depression Smoking Status: Never smoker Past Alcohol Use History: Occasional Past Drug Use History: Marijuana - Past Family History Mother Family Medical History: Cancer Additional Family Medical History / Comment(s): BREAST AND LUNG CANCER Medications and Allergies Home Medications Medication Instructions Recorded Confirmed Type Buta/APAP/Caf/Cod 49-260-14-30 1 cap PO DAILY PRN 07/26/15 12/18/19 History [Fioricet w/Cod 82-738-31-30MG] ALPRAZolam [Xanax] 0.5 mg PO DAILY 12/18/19 12/18/19 History Aspirin EC [Ecotrin Low Dose] 81 mg PO DAILY 12/18/19 12/18/19 History Citalopram Hydrobromide [CeleXA] 20 mg PO DAILY 12/18/19 12/18/19 History Dextromethorphan HBr/Quinidine 1 cap PO DAILY 12/18/19 12/18/19 History [Nuedexta 20-10 mg Capsule] Lisinopril-Hctz 20-12.5 mg 1 tab PO DAILY 12/18/19 12/18/19 History [Zestoretic 20-12.5] Meloxicam [Mobic] 7.5 mg PO DAILY 12/18/19 12/18/19 History Multivitamins, Thera [Multivitamin 1 tab PO DAILY 12/18/19 12/18/19 History (formulary)] QUEtiapine [SEROquel] 100 mg PO HS 12/18/19 12/18/19 History carBAMazepine [TEGretol XR] 400 mg PO BID 12/18/19 12/18/19 History Allergies Allergy/AdvReac Type Severity Reaction Status Date / Time hydromorphone HCl Allergy Vomiting Verified 12/18/19 19:44 [From Dilaudid] metronidazole [From Flagyl] AdvReac Dyspnea Verified 12/18/19 19:44 wheat AdvReac Diarrhea Verified 12/18/19 19:44 Physical Exam Vitals: Vital Signs Temp Pulse Pulse Resp BP BP Pulse Ox 12/19/19 14:30 101 F H 90 17 169/85 99 12/19/19 07:03 100.2 F H 78 18 165/75 98 12/19/19 00:40 99.1 F 66 16 152/76 97 12/18/19 21:20 98.5 F 74 14 150/73 96 12/18/19 20:36 100.1 F H 71 18 125/79 98 12/18/19 19:13 103.6 F H 79 18 154/83 97 12/18/19 17:38 100.6 F H 97 18 131/81 100 Intake and Output 12/19/19 12/19/19 12/19/19 06:59 14:59 22:59 Other: # Voids 3 3 The patient appeared well nourished and normally developed. Vital signs as d ocumented. Head exam is unremarkable. No scleral icterus or corneal arcus noted. Neck is without jugular venous distension, thyromegaly, or carotid bruits. Carotid upstrokes are brisk bilaterally. Lungs are clear to auscultation and percussion. Cardiac exam reveals the PMI to be normally sized and situated. Rhythm is regular. First and second heart sounds normal. No murmurs, rubs or gallops. Abdominal exam reveals normal bowel sounds, no masses, no organomegaly and no aortic enlargement. Extremities are nonedematous and both femoral and pedal pulses are normal.Examination of the skin revealed no evidence of significant rashes, suspicious appearing nevi or other concerning lesions.Neurologically, the patient is awake and alert and the patient does not have any focal neurological deficit. Cranial nerves are essentially intact. Results - Laboratory Findings CBC and BMP: 12/18/19 17:57 12/19/19 07:32 PT/INR, D-dimer PT 10.9 sec (9.0-12.0) 12/18/19 22:34 INR 1.1 (<1.2) 12/18/19 22:34 D-Dimer 0.25 mg/L FEU (<0.60) 12/18/19 22:34 Abnormal lab findings: Abnormal Labs 12/18/19 12/18/19 12/18/19 17:57 17:57 22:34 RBC 3.65 L Neutrophils # 9.3 H Lymphocytes # 0.7 L Sodium 133 L Potassium 3.2 L Chloride 97 L Glucose 140 H C-Reactive Protein 191.7 H Procalcitonin 0.14 H Ur Specific [place] Urine Protein Urine Ketones Urine Blood Ur Leukocyte Esterase Urine RBC Urine WBC 12/19/19 12/19/19 01:57 07:32 RBC Neutrophils # Lymphocytes # Sodium 135 L Potassium Chloride Glucose 123 H C-Reactive Protein Procalcitonin Ur Specific [place] >1.050 H Urine Protein Trace H Urine Ketones 1+ H Urine Blood Large H Ur Leukocyte Esterase Large H Urine RBC 44 H Urine WBC 39 H - Diagnostic Findings Chest x-ray: image reviewed CT scan - chest: image reviewed Assessment and Plan Plan: 1 right upper lobe pneumonia. The patient clearly has an airspace disease in the right upper lobe consistent with pneumonia. The west virus COVID 19 screen came back negative. 2 fever most likely related to underlying pneumonia. Workup is still in progress. 3 mild intermittent bronchial asthma 4 nausea and emesis 5 CVA, history of 6 hypertension. 7 chronic anxiety/depression 8 acid reflux Plan Agree on the current treatment Keep same antibiotics Monitor fever pattern Repeat chest x-ray in the morning We'll continue to follow
--- NOTE | 2019-12-20 12:59 | XR ---
EXAMINATION TYPE: XR chest 2V DATE OF EXAM: 12/20/2019 CLINICAL HISTORY: Pneumonia follow-up TECHNIQUE: Frontal and lateral views of the chest are obtained. COMPARISON: CT chest abdomen pelvis 12/18/2019 FINDINGS: The cardiomediastinal silhouette is within normal limits for size. Pulmonary vasculature i s normal. Persistent focal opacity of the medial right upper lobe. No pleural effusion or pneumothora x seen. The osseous structures are intact. IMPRESSION: Persistent focal airspace opacity of the right upper lobe.
--- NOTE | 2019-12-20 13:00 | P.PN ---
Subjective Progress Note Date: 12/20/19 12/20/2019, the patient is doing well. No respiratory distress. Nausea subsided. Nevertheless the patient is still having fever. I repeated chest x- ray and there is still some upper lobe anterior segment pulmonary infiltration. Decided to keep the patient has a for another 24 hours for IV antibiotics. With the monitoring the fever pattern for now. The patient was having episodic fever throughout the night. As mentioned earlier, the cultures came back all negative. She is on room air oxygen with a pulse ox of 95%. No nausea. No vomiting. No abdominal pain. No headaches. No chest pain. No pleurisy. No hemoptysis. Objective - Vital Signs Vital signs: Vital Signs Temp 100.3 F H 12/20/19 07:00 Pulse 79 12/20/19 07:00 Resp 18 12/20/19 07:00 BP 134/78 12/20/19 07:00 Pulse Ox 95 12/20/19 07:00 Intake & Output 12/19/19 12/20/19 12/20/19 18:59 06:59 18:59 Output Total 50 Balance -50 Output: Emesis 50 Other: Voiding Method Toilet # Voids 3 3 - Exam The patient appeared well nourished and normally developed. Vital signs as documented. Head exam is unremarkable. No scleral icterus or corneal arcus noted. Neck is without jugular venous distension, thyromegaly, or carotid bruits. Carotid upstrokes are brisk bilaterally. Lungs are clear to auscultation and percussion. Cardiac exam reveals the PMI to be normally sized and situated. Rhythm is regular. First and second heart sounds normal. No murmurs, rubs or gallops. Abdominal exam reveals normal bowel sounds, no masses, no organomegaly and no aortic enlargement. Extremities are nonedematous and both femoral and pedal pulses are normal.Examination of the skin revealed no evidence of significant rashes, suspicious appearing nevi or other concerning lesions.Neuro logically, the patient is awake and alert and the patient does not have any focal neurological deficit. Cranial nerves are essentially intact. - Labs CBC & Chem 7: 12/18/19 17:57 12/19/19 07:32 Labs: Microbiology - Last 24 Hours (Table) 12/19/19 01:57 Urine Culture - Final Urine,Catheterized 12/18/19 17:57 Blood Culture - Preliminary Blood No Growth after 24 hours Assessment and Plan Plan: 1 right upper lobe pneumonia. The patient clearly has an airspace disease in the right upper lobe consistent with pneumonia. The west virus COVID 19 screen came back negative. The repeat chest exit from today is unchanged. We'll give the patient another 24 hours of IV antibiotics specially the patient is having ongoing fever. 2 fever most likely related to underlying pneumonia. Workup is still in progress. The cultures came back all negative. 3 mild intermittent bronchial asthma 4 nausea and emesis 5 CVA, history of 6 hypertension. 7 chronic anxiety/depression 8 acid reflux Plan Agree on the current treatment, keep the same antibiotics for now and monitor the fever pattern. Repeat chest x-ray in the morning is showing a stable pulmonary infiltrate and right upper lobe We'll continue to follow
[2019-12-20] MEDS: QUEtiapine 100 MG TAB PO SCH (20:31)
[2019-12-21] MEDS: BUTA/APAP/CAF/COD 50-325-40-30 CAP PO PRN ×2 (04:24→11:01)
[2019-12-21] MEDS: AZITHROMYCIN 500 MG TAB PO SCH (04:25)
[2019-12-21] MEDS: SODIUM CHLORIDE 0.9% 1,000 ML IV SCH ×2 (04:34→07:16)
[2019-12-21] MEDS: LISINOPRIL-HCTZ 20-12.5 MG 1 EACH TAB PO SCH (07:15)
[2019-12-21] MEDS: PANTOPRAZOLE 40 MG TABLET PO SCH (07:15)
[2019-12-21] MEDS: carBAMazepine 400 MG TAB.ER.12H PO SCH (07:15)
[2019-12-21] MEDS: ASPIRIN 81 MG PO SCH (07:16)
[2019-12-21] MEDS: HEPARIN SODIUM,PORCINE 5,000 UNIT/ML 1 ML VIAL SQ SCH (07:17)
[2019-12-21 07:23] VITALS: BP 138/73; PULSE 69; RESP 18; TEMP 99.2
--- NOTE | 2019-12-21 08:18 | XR ---
EXAMINATION TYPE: XR chest 2V DATE OF EXAM: 12/21/2019 COMPARISON: 12/20/2019 TECHNIQUE: PA and lateral views submitted. HISTORY: Follow-up pneumonia FINDINGS: Persistent right hilar consolidation or mass. Left lung clear. No pleural effusion or pneumothorax. N o interstitial edema hypertrophic and degenerative change of the spine. IMPRESSION: 1. Persistent right-sided consolidation\pneumonia or mass follow-up to resolution recommended. No int erval change.
--- NOTE | 2019-12-21 10:48 | P.DS ---
Providers Date of admission: 12/19/19 05:15 Expected date of discharge: 12/21/19 Attending physician: Daniel Shirley MD Consults: 12/19/19 09:28 Consult Physician Routine Consulting Provider: Romi Ochoa Consult Reason/Comments: bronchopna Do you want consulting provider notified?: Yes Primary care physician: [facility] Hospital Course: The patient is a 59-year-old female with a PMH of hypertension, mild intermittent asthma, chronic migraines, and history of CVA who presented to the ED with complaints of fever, lethargy, nausea, and vomiting. The patient reports that her symptoms started yesterday morning. She reports having thrown up 10-15 times along with 4-5 episodes of diarrhea. Denied blood or bile in the vomitus. Denied sick contacts. Denied chest pain, shortness of breath, or cough. Denied visual disturbances, weakness, numbness, or tingling. Denied history of drug use. Reports a diffuse mild headache, similar in nature to her prior migraines. She reported recent travel to [place] by car with her family, where they stayed at hotels and visited multiple public areas. In the emergency room, the patient's vitals were T-max 103.6, BP 154/83, pulse 79, and saturating 98% on room air. Chest x-ray showed a 3 cm density in the superior right pulmonary hilum with no other abnormalities noted. EKG revealed normal sinus rhythm at 77 bpm with no acute ST/T-wave changes noted as reviewed by me. Laboratory evaluation revealed a CRP of 191.7, lactic acid 2.0, sodium 133, potassium 3.2, chloride 97, WBC count 10.5. CT chest abdomen and pelvis was done which showed right upper lobe bronchopneumonia. She was started on Rocephin and azithromycin. Pulmonology was consulted and followed the patient. Her nausea vomiting progressively improved. She did have an abnormal urinalysis positive for leukocyte esterase but she was asymptomatic. Pulmonology recommended Levaquin by mouth for 7 more days and cleared the patient for discharge. Patient was seen and examined. No acute events overnight. Tolerating diet well. She denies any chest pain, shortness breath or palpitations. No nausea or vomiting. No fever or chills. Wanting to go home. General: [non toxic], [no distress], [appears at stated age] Derm: [warm], [dry] Head: [atraumatic], [normocephalic], [symmetric] Eyes: [EOMI], [no lid lag], [anicteric sclera] Mouth: [no lip lesion], [mucus membranes moist] Cardiovascular: [S1S2 reg], [no murmur], [positive posterior tibial pulse bilateral], Lungs: [CTA bilateral], [no rhonchi, no rales] , [no accessory muscle use] Abdominal: [soft], [ nontender to palpation], [no guarding], [no appreciable organomegaly] Ext: [no gross muscle atrophy], [no edema], [no contractures] Neuro: [ CN II-XI grossly intact], [no focal neuro deficits] Psych: [Alert], [oriented], [appropriate affect] Right upper lobe bronchopneumonia -7 more days of Levaquin by mouth -Tylenol as needed for fever -Follow pulmonology consultation Nausea and vomiting -Likely related to above infection -Zofran as needed -Attempt a low-salt diet Abnormal urinalysis -Positive leukocyte esterase -Urine culture shows genital shelton -Continue Rocephin Hyponatremia, improving -Likely due to poor oral intake in setting of nausea and vomiting -Continue with IV fluids as above Chronic conditions: Hypertension, history of CVA -Continue with home lisinopril and hydrochlorothiazide -Continue with home aspirin DVT prophylaxis -Heparin subq Resolved: Hypokalemia [Patient admitted for pneumonia. Feeling better. Continues to have low-grade fever. Cleared by pulmonology for discharge with Levaquin for 1 week. This complex discharge took about 35 minutes to complete..] Pertinent Studies: CT chest abdomen and pelvis, KUB, chest x-ray Patient Condition at Discharge: Stable Plan - Discharge Summary New Discharge Prescriptions: New Levofloxacin [Levaquin] 750 mg PO DAILY 7 Days #7 tab Continue Buta/APAP/Caf/Cod [id number] [Fioricet w/Cod 52-848-47-30MG] 1 cap PO DAILY PRN PRN Reason: Migraine Headache carBAMazepine [TEGretol XR] 400 mg PO BID ALPRAZolam [Xanax] 0.5 mg PO DAILY QUEtiapine [SEROquel] 100 mg PO HS Multivitamins, Thera [Multivitamin (formulary)] 1 tab PO DAILY Meloxicam [Mobic] 7.5 mg PO DAILY Dextromethorphan HBr/Quinidine [Nuedexta 20-10 mg Capsule] 1 cap PO DAILY Lisinopril-Hctz 20-12.5 mg [Zestoretic 20-12.5] 1 tab PO DAILY Citalopram Hydrobromide [CeleXA] 20 mg PO DAILY Aspirin EC [Ecotrin Low Dose] 81 mg PO DAILY Discharge Medication List Buta/APAP/Caf/Cod [id number] [Fioricet w/Cod 31-275-57-30MG] 1 cap PO DAILY PRN 07/26/15 [History] ALPRAZolam [Xanax] 0.5 mg PO DAILY 12/18/19 [History] Aspirin EC [Ecotrin Low Dose] 81 mg PO DAILY 12/18/19 [History] Citalopram Hydrobromide [CeleXA] 20 mg PO DAILY 12/18/19 [History] Dextromethorphan HBr/Quinidine [Nuedexta 20-10 mg Capsule] 1 cap PO DAILY 12/18/19 [History] Lisinopril-Hctz 20-12.5 mg [Zestoretic 20-12.5] 1 tab PO DAILY 12/18/19 [History] Meloxicam [Mobic] 7.5 mg PO DAILY 12/18/19 [History] Multivitamins, Thera [Multivitamin (formulary)] 1 tab PO DAILY 12/18/19 [History] QUEtiapine [SEROquel] 100 mg PO HS 12/18/19 [History] carBAMazepine [TEGretol XR] 400 mg PO BID 12/18/19 [History] Levofloxacin [Levaquin] 750 mg PO DAILY 7 Days #7 tab 12/21/19 [Rx] Follow up Appointment(s)/Referral(s): Max Wakefield MD [Primary Care Provider] - 1-2 days Romi Ochoa MD [STAFF PHYSICIAN] - 12/22/19 Activity/Diet/Wound Care/Special Instructions: Diet: Cardiac low-salt Follow-up PCP within 3 days of discharge. Follow-up with pulmonology within 1 week of discharge. Take all medications as advised. Come back to the ED or call 911 for worsening chest pain, shortness breath, palpitations, fevers not controlled with Tylenol Discharge Disposition: HOME SELF-CARE
--- NOTE | 2019-12-21 10:50 | P.PN ---
Subjective Progress Note Date: 12/21/19 Principal diagnosis: Right upper lobe pneumonia The patient is seen today 12/21/2019 in follow-up on the regular medical floor. She is currently sitting up in bed. She's been up to the shower. She is improved. She denies any worsening shortness of breath, cough or congestion. She had a temperature earlier for 100.2. Currently afebrile. She is maintaining good O2 saturations in the mid 90s on room air. Blood and urine cultures reveal no growth. Chest x-ray continues to show persistent right-sided consolidation. Objective - Vital Signs Vital signs: Vital Signs Temp 99.2 F 12/21/19 07:00 Pulse 69 12/21/19 07:00 Resp 18 12/21/19 07:20 BP 138/73 12/21/19 07:00 Pulse Ox 96 12/21/19 07:00 Intake & Output 12/20/19 12/21/19 12/21/19 18:59 06:59 18:59 Other: Voiding Method Toilet Toilet # Voids 3 2 - Exam The patient is a very pleasant 59-year-old female patient appears well nourished and normally developed. Vital signs as documented. Head exam is unremarkable. No scleral icterus or corneal arcus noted. Neck is without jugular venous distension, thyromegaly, or carotid bruits. Carotid upstrokes are brisk bilaterally. Lungs are clear to auscultation and percussion. Cardiac exam reveals the PMI to be normally sized and situated. Rhythm is regular. First and second heart sounds normal. No murmurs, rubs or gallops. Abdominal exam reveals normal bowel sounds, no masses, no organomegaly and no aortic enlargement. E xtremities are nonedematous and both femoral and pedal pulses are normal.Examination of the skin revealed no evidence of significant rashes, suspicious appearing nevi or other concerning lesions.Neurologically, the patient is awake and alert and the patient does not have any focal neurological deficit. Cranial nerves are essentially intact. - Labs CBC & Chem 7: 12/18/19 17:57 12/19/19 07:32 Labs: Abnormal Lab Results - Last 24 Hours (Table) 12/19/19 Range/Units 06:52 Procalcitonin 0.12 H (0.02-0.09) ng/mL Microbiology - Last 24 Hours (Table) 12/18/19 17:57 Blood Culture - Preliminary Blood No Growth after 48 hours 12/19/19 01:57 Urine Culture - Final Urine,Catheterized Assessment and Plan Assessment: 1 right upper lobe pneumonia. The patient clearly has an airspace disease in the right upper lobe consistent with pneumonia. The [place] virus COVID 19 screen came back negative. The repeat chest exit from today is unchanged. We'll give the patient another 24 hours of IV antibiotics specially the patient is having ongoing fever. 2 fever most likely related to underlying pneumonia. Workup is still in progress. The cultures came back all negative. 3 mild intermittent bronchial asthma 4 nausea and emesis 5 CVA, history of 6 hypertension. 7 chronic anxiety/depression 8 acid reflux Plan The patient was seen and evaluated by Dr. Ochoa Chest x-ray reviewed Persistent stable right upper lobe opacity Cleared for discharge and will have follow-up chest x-ray later this week [facility], the cosigning physician, performed a history & physical examination of the patient. Lungs sounds are clear. Maintaining good O2 saturations in the 90s on room air. I discussed the assessment and plan of care with my nurse practitioner, Leia Crowell. I attest to the above note as dictated by her.
== END 2019-12-21 12:09 | disposition home or self-care (01) | DRG 194 ==
LOC: EC 17:27 → 4SSUR 20:25 → OBSVTOIN 12-19 05:15
PROVIDERS: ADMIT Internal Medicine; ATTEND Internal Medicine
DX: J18.0 Bronchopneumonia, unspecified organism (principal); E87.1 Hypo-osmolality and hyponatremia; J45.20 Mild intermittent asthma, uncomplicated; E86.0 Dehydration; E87.6 Hypokalemia; E87.8 Other disorders of electrolyte and fluid balance, not elsewhere classified; F32.9 Major depressive disorder, single episode, unspecified; F41.9 Anxiety disorder, unspecified; G43.909 Migraine, unspecified, not intractable, without status migrainosus; I10 Essential (primary) hypertension; K21.9 Gastro-esophageal reflux disease without esophagitis; Z20.828 Contact with and (suspected) exposure to other viral communicable diseases; Z79.1 Long term (current) use of non-steroidal anti-inflammatories (NSAID); Z79.82 Long term (current) use of aspirin; Z79.899 Other long term (current) drug therapy; Z80.1 Family history of malignant neoplasm of trachea, bronchus and lung; Z86.73 Personal history of transient ischemic attack (TIA), and cerebral infarction without residual deficits; R19.7 Diarrhea, unspecified; Z80.3 Family history of malignant neoplasm of breast; Z91.81 History of falling; L92.0 Granuloma annulare; Z88.1 Allergy status to other antibiotic agents; Z88.5 Allergy status to narcotic agent
CPT/HCPCS: 36415; 71046; 71260; 74022; 74177; 80048; 80053; 81001; 82550; 82728; 83605; 83615; 83735; 84145; 85025; 85379; 85610; 86140; 87040; 87086; 87502; 93005; 96374; 96375; 99285

== ENCOUNTER → 2020-04-26 | Outpatient (CLI) | payer OTHER ==
--- NOTE | 2020-04-26 17:34 | US ---
EXAMINATION TYPE: US kidneys/renal and bladder DATE OF EXAM: 04/26/2020 COMPARISON: NONE CLINICAL HISTORY: 59-year-old female R94.4 abnormal results of kidney function studies. Abnormal kid sandy function TECHNIQUE: Multiple sonographic images of the kidneys and bladder are obtained. FINDINGS: EXAM MEASUREMENTS: Right Kidney: 9.1 x 4.2 x 3.7 cm Left Kidney: 9.9 x 3.7 x 4.0 cm No hydronephrosis on either side. Bladder: wnl Bilateral Jets seen: Yes IMPRESSION: No hydronephrosis.
== END | disposition home or self-care (01) ==
LOC: RADUSWWP 14:47
PROVIDERS: ATTEND Internal Medicine
DX: R94.4 Abnormal results of kidney function studies (principal)
CPT/HCPCS: 76770

== ENCOUNTER 2020-07-09 19:54 | Emergency (ER) | payer OTHER ==
[2020-07-09] MEDS ORDERED: BUTA/APAP/CAF/COD 50-325-40-30 CAP PO STA (21:18)
[2020-07-09] MEDS ORDERED: SODIUM CHLORIDE 0.9% 1,000 ML IV ONE (21:18)
[2020-07-09] MEDS ORDERED: ONDANSETRON 4 MG/2 ML VIAL IVP STA (21:18)
--- NOTE | 2020-07-09 21:23 | ED ---
Nausea/Vomiting/Diarrhea HPI - General Chief complaint: Abdominal Pain Stated complaint: Vomiting, Weakness Time Seen by Provider: 07/09/20 21:01 Source: patient Mode of arrival: ambulatory - History of Present Illness Initial comments: This patient is a 59-year-old woman who complains of having nausea, vomiting, and diarrhea. She states that she had been feeling like her usual self until she woke up about midnight last night feeling nauseated and then shortly after started vomiting. She states she thinks she has had about a total of 30 episodes of vomiting over the course of the past 21 hours. She has not seen any blood or coffee-ground emesis. She states that in addition to that she has had about 4-5 episodes which she is calling diarrhea. No blood or tarry stool. Patient denies abdominal pain. In addition, she states that she has developed a migraine headache, which is typical of her usual migraines. She usually takes Fioricet but she was not able tolerate the medication due to the nausea and vomiting. MD complaint: nausea, vomiting, diarrhea Onset/Timin -: hour(s) Description of Vomiting: food contents Description of Diarrhea: water Associated Abdominal Pain: No Severity scale (1-10): 0 Improves with: none Worsens with: none Associated Symptoms: headaches - Related Data Home Medications Medication Instructions Recorded Confirmed ALPRAZolam [Xanax] 0.5 mg PO DAILY PRN 12/18/19 07/09/20 Aspirin EC [Ecotrin Low Dose] 81 mg PO DAILY 12/18/19 07/09/20 Citalopram Hydrobromide [CeleXA] 30 mg PO DAILY 12/18/19 07/09/20 Dextromethorphan HBr/Quinidine 1 cap PO DAILY 12/18/19 07/09/20 [Nuedexta 20-10 mg Capsule] Lisinopril-Hctz 20-12.5 mg 1 tab PO DAILY 12/18/19 07/09/20 [Zestoretic 20-12.5] Multivitamins, Thera [Multivitamin 1 tab PO DAILY 12/18/19 07/09/20 (formulary)] QUEtiapine [SEROquel] 100 mg PO HS 12/18/19 07/09/20 Butalbit/Acetamin/Caff/Codeine 1 cap PO BID PRN 07/09/20 07/09/20 [Fioricet-Cod 08-542-00-30 Cap] Prochlorperazine [Compazine] 5 mg PO QID 07/09/20 07/09/20 carBAMazepine [TEGretol XR] 100 mg PO BID 07/09/20 07/09/20 carBAMazepine [TEGretol XR] 200 mg PO BID 07/09/20 07/09/20 hydrOXYzine pamoate [Vistaril] 25 mg PO TID 07/09/20 07/09/20 tiZANidine [Zanaflex] 4 mg PO BID 07/09/20 07/09/20 Previous Rx's Medication Instructions Recorded Ondansetron Odt [Zofran ODT] 4 mg PO Q8HR PRN #10 tab 07/10/20 Allergies Allergy/AdvReac Type Severity Reaction Status Date / Time hydromorphone HCl Allergy Vomiting Verified 07/09/20 23:47 [From Dilaudid] metronidazole [From Flagyl] AdvReac Dyspnea Verified 07/09/20 23:47 wheat AdvReac Diarrhea Verified 07/09/20 23:47 Review of Systems ROS Statement: Those systems with pertinent positive or pertinent negative responses have been documented in the HPI. ROS Other: All systems not noted in ROS Statement are negative. Constitutional: Denies: fever, chills Eyes: Denies: eye pain, vision change Respiratory: Denies: cough, dyspnea Cardiovascular: Denies: chest pain, palpitations, edema Gastrointestinal: Reports: nausea, vomiting, diarrhea. Denies: abdominal pain, hematemesis, melena, hematochezia Genitourinary: Denies: dysuria, frequency, hematuria Musculoskeletal: Denies: back pain Skin: Denies: rash Neurological: Reports: headache, paresthesias (Bilateral hands). Denies: weakness, numbness Past Medical History Past Medical History: Asthma, CVA/TIA, GERD/Reflux, Pneumonia, Skin Disorder Additional Past Medical History / Comment(s): GRANULOMA ANNULARE (SKIN CONDITION), CHRONIC MIGRAINES; fell this summer & had MRI; it showed a minor stroke "Brain Stem, no difficiencies" no blood thinners needed. History of Any Multi-Drug Resistant Organisms: None Reported Past Surgical History: Orthopedic Surgery Additional Past Surgical History / Comment(s): KNEE AND TOE SURGERY AT 12 AND 14 YRS OLD. RT ROTATOR CUFF REPAIR 07/28/15. COLONOSCOPY, EGD Past Anesthesia/Blood Transfusion Reactions: Motion Sickness, Postoperative Nausea & Vomiting (PONV) Past Psychological History: Anxiety, Depression Smoking Status: Never smoker Past Alcohol Use History: Occasional Past Drug Use History: Marijuana - Past Family History Mother Family Medical History: Cancer Additional Family Medical History / Comment(s): BREAST AND LUNG CANCER General Exam General appearance: alert, in no apparent distress, anxious Head exam: Present: atraumatic, normocephalic Eye exam: Present: normal appearance. Absent: scleral icterus, conjunctival injection ENT exam: Present: mucous membranes dry Neck exam: Present: normal inspection Respiratory exam: Present: normal lung sounds bilaterally. Absent: respiratory distress, wheezes, rales, rhonchi, stridor Cardiovascular Exam: Present: regular rate, normal rhythm, normal heart sounds. Absent: systolic murmur, diastolic murmur, rubs, gallop GI/Abdominal exam: Present: soft. Absent: distended, tenderness, guarding, rebound, rigid, mass Extremities exam: Present: normal inspection, normal capillary refill. Absent: pedal edema, calf tenderness Back exam: Present: normal inspection. Absent: CVA tenderness (R), CVA tenderne ss (L) Neurological exam: Present: alert Psychiatric exam: Present: normal affect, normal mood, anxious Skin exam: Present: warm, dry, intact, normal color. Absent: rash Course Vital Signs 07/09/20 07/09/20 20:34 21:37 Temperature 98.7 F Pulse Rate 80 82 Respiratory 19 16 Rate Blood Pressure 137/77 144/80 O2 Sat by Pulse 100 98 Oximetry Medical Decision Making - Lab Data Result diagrams: 07/09/20 21:26 07/09/20 21:26 Lab Results 07/09/20 07/09/20 07/09/20 Range/Units 21:26 21:26 23:00 WBC 3.8 (3.8-10.6) k/uL RBC 3.45 L (3.80-5.40) m/uL Hgb 11.8 (11.4-16.0) gm/dL Hct 32.8 L (34.0-46.0) % MCV 95.1 (80.0-100.0) fL MCH 34.2 (25.0-35.0) pg MCHC 36.0 (31.0-37.0) g/dL RDW 12.3 (11.5-15.5) % Plt Count 261 (150-450) k/uL MPV 6.8 Neutrophils % 80 % Lymphocytes % 8 % Monocytes % 9 % Eosinophils % 2 % Basophils % 0 % Neutrophils # 3.1 (1.3-7.7) k/uL Lymphocytes # 0.3 L (1.0-4.8) k/uL Monocytes # 0.3 (0-1.0) k/uL Eosinophils # 0.1 (0-0.7) k/uL Basophils # 0.0 (0-0.2) k/uL Sodium 137 (137-145) mmol/L Potassium 3.7 (3.5-5.1) mmol/L Chloride 103 (98-107) mmol/L Carbon Dioxide 23 (22-30) mmol/L Anion Gap 11 mmol/L BUN 20 H (7-17) mg/dL Creatinine 1.12 H (0.52-1.04) mg/dL Est GFR (CKD-EPI)AfAm 62 (>60 ml/min/1.73 sqM) Est GFR (CKD-EPI)NonAf 54 (>60 ml/min/1.73 sqM) Glucose 123 H (74-99) mg/dL Calcium 10.1 (8.4-10.2) mg/dL Total Bilirubin 0.4 (0.2-1.3) mg/dL AST 31 (14-36) U/L ALT 17 (4-34) U/L Alkaline Phosphatase 126 (38-126) U/L Total Protein 7.5 (6.3-8.2) g/dL Albumin 4.6 (3.5-5.0) g/dL Amylase 121 H (30-110) U/L Lipase 255 (23-300) U/L Urine Color Yellow Urine Appearance Clear (Clear) Urine pH 8.0 (5.0-8.0) Ur Specific [place] 1.021 (1.001-1.035) Urine Protein 1+ H (Negative) Urine Glucose (UA) Negative (Negative) Urine Ketones 2+ H (Negative) Urine Blood Moderate H (Negative) Urine Nitrite Negative (Negative) Urine Bilirubin Negative (Negative) Urine Urobilinogen <2.0 (<2.0) mg/dL Ur Leukocyte Esterase Negative (Negative) Urine RBC 35 H (0-5) /hpf Urine WBC 2 (0-5) /hpf Ur Squamous Epith Cells 4 (0-4) /hpf Urine Bacteria Rare H (None) /hpf Urine Mucus Rare H (None) /hpf Disposition Clinical Impression: Nausea & vomiting, Dehydration, Hematuria Disposition: HOME SELF-CARE Condition: Good Instructions (If sedation given, give patient instructions): Acute Nausea and Vomiting (ED), Hematuria (ED) Prescriptions: Ondansetron Odt [Zofran ODT] 4 mg PO Q8HR PRN #10 tab PRN Reason: Nausea Is patient prescribed a controlled substance at d/c from ED?: No Referrals: Max Wakefield MD [Primary Care Provider] - 1-2 days
[2020-07-09 21:29] LABS: Basophils % (A) 0 %; Eosinophils # (A) 0.1 k/uL (0-0.7); Eosinophils % (A) 2 %; HCT 32.8 % (34.0-46.0); HGB 11.8 gm/dL (11.4-16.0); Lymphocytes # (A) 0.3 k/uL (1.0-4.8); Lymphocytes % (A) 8 %; MCH 34.2 pg (25.0-35.0); MCV 95.1 fL (80.0-100.0); Mean Platelet Volume 6.8; Monocytes # (A) 0.3 k/uL (0-1.0); Monocytes % (A) 9 %; Neutrophils # (A) 3.1 k/uL (1.3-7.7); Neutrophils % (A) 80 %; Platelet Count 261 k/uL (150-450); RBC 3.45 m/uL (3.80-5.40); RDW 12.3 % (11.5-15.5); WBC 3.8 k/uL (3.8-10.6)
[2020-07-09 21:39] LABS: Albumin 4.6 g/dL (3.5-5.0); Calcium 10.1 mg/dL (8.4-10.2); Potassium 3.7 mmol/L (3.5-5.1); Total Bilirubin 0.4 mg/dL (0.2-1.3); Total Protein 7.5 g/dL (6.3-8.2)
[2020-07-09 23:13] VITALS: RESP 16
[2020-07-10 00:07] LABS: Appearance,Urine Clear (Clear); Bacteria,Urine Rare /hpf; Bilirubin,Urine Negative (Negative); Blood,Urine Moderate (Negative); Color,Urine Yellow; Glucose,Urine (UA) Negative (Negative); Ketones,Urine 2+ (Negative); Leukocyte Esterase,Urine Negative (Negative); Mucus,Urine Rare /hpf; Nitrite,Urine Negative (Negative); Protein,Urine 1+ (Negative); RBC,Urine 35 /hpf (0-5); Specific Gravity,Urine 1.021 (1.001-1.035); Squamous Epithelial Cell,Urine 4 /hpf (0-4); Urobilinogen,Urine <2.0 mg/dL (<2.0); WBC,Urine 2 /hpf (0-5)
[2020-07-10 00:41] VITALS: BP 143/79; PULSE 80; TEMP 98
== END 2020-07-10 00:30 | disposition home or self-care (01) ==
LOC: EC 19:54
DX: E86.0 Dehydration (principal); R19.7 Diarrhea, unspecified; R31.9 Hematuria, unspecified; R11.2 Nausea with vomiting, unspecified; J45.909 Unspecified asthma, uncomplicated; K21.9 Gastro-esophageal reflux disease without esophagitis; F32.9 Major depressive disorder, single episode, unspecified; F41.9 Anxiety disorder, unspecified; Z79.82 Long term (current) use of aspirin; Z79.899 Other long term (current) drug therapy; Z88.1 Allergy status to other antibiotic agents; Z88.8 Allergy status to other drugs, medicaments and biological substances; Z91.018 Allergy to other foods; Z86.73 Personal history of transient ischemic attack (TIA), and cerebral infarction without residual deficits; Z86.69 Personal history of other diseases of the nervous system and sense organs
CPT/HCPCS: 36415; 80053; 82150; 83690; 85025; 81001; 99284; 96374; 96361; J2405

== ENCOUNTER 2020-08-07 13:59 | Emergency (ER) | payer OTHER ==
[2020-08-07 14:07] VITALS: BP 161/77; PULSE 67; RESP 20; TEMP 98.6
[2020-08-07] MEDS ORDERED: ONDANSETRON 4 MG/2 ML VIAL IVP STA (14:48)
[2020-08-07] MEDS ORDERED: SODIUM CHLORIDE 0.9% 1,000 ML IV STA (14:48)
--- NOTE | 2020-08-07 14:54 | ED ---
Nausea/Vomiting/Diarrhea HPI - General Chief complaint: Nausea/Vomiting/Diarrhea Stated complaint: Vomiting Time Seen by Provider: 08/07/20 14:20 Source: patient, RN notes reviewed Mode of arrival: wheelchair Limitations: no limitations - History of Present Illness Initial comments: 59-year-old white female patient presents to the emergency room with her complaining of nausea and vomiting since receiving her second liter and a covert vaccine on . Patient states within a couple hours after receiving the vaccine started to have nausea and vomiting today has vomited more than 10 times. Patient has not had a fever, denies shortness of breath or diarrhea, no cough or chest pain. Patient states she has a frontal headache 8 out of 10 but may be related to excessive vomiting or her normal migraine headaches. 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 Patient denies drinking or smoking on a daily basis. She is alert and oriented 4. MD complaint: nausea, vomiting -: days(s) (2) Description of Vomiting: bilious Severity: moderate (frontal headache) Severity scale (1-10): 7 Quality: other (throbbing) Consistency: constant Improves with: none Worsens with: none Context: aspirin use, other (received second Covid vaccine and became sick within a couple hours with n/v) Associated Symptoms: headaches, loss of appetite - Related Data Home Medications Medication Instructions Recorded Confirmed ALPRAZolam [Xanax] 0.5 mg PO DAILY PRN 12/18/19 07/09/20 Aspirin EC [Ecotrin Low Dose] 81 mg PO DAILY 12/18/19 07/09/20 Citalopram Hydrobromide [CeleXA] 30 mg PO DAILY 12/18/19 07/09/20 Dextromethorphan HBr/Quinidine 1 cap PO DAILY 12/18/19 07/09/20 [Nuedexta 20-10 mg Capsule] Lisinopril-Hctz 20-12.5 mg 1 tab PO DAILY 12/18/19 07/09/20 [Zestoretic 20-12.5] Multivitamins, Thera [Multivitamin 1 tab PO DAILY 12/18/19 07/09/20 (formulary)] QUEtiapine [SEROquel] 100 mg PO HS 12/18/19 07/09/20 Butalbit/Acetamin/Caff/Codeine 1 cap PO BID PRN 07/09/20 07/09/20 [Fioricet-Cod 62-353-91-30 Cap] Prochlorperazine [Compazine] 5 mg PO QID 07/09/20 07/09/20 carBAMazepine [TEGretol XR] 100 mg PO BID 07/09/20 07/09/20 carBAMazepine [TEGretol XR] 200 mg PO BID 07/09/20 07/09/20 hydrOXYzine pamoate [Vistaril] 25 mg PO TID 07/09/20 07/09/20 tiZANidine [Zanaflex] 4 mg PO BID 07/09/20 07/09/20 Previous Rx's Medication Instructions Recorded Ondansetron Odt [Zofran ODT] 4 mg PO Q8HR PRN #10 tab 07/10/20 Ondansetron Odt [Zofran Odt] 4 mg PO Q8HR PRN #10 tab 08/07/20 Allergies Allergy/AdvReac Type Severity Reaction Status Date / Time hydromorphone HCl Allergy Vomiting Verified 08/07/20 14:07 [From Dilaudid] metronidazole [From Flagyl] AdvReac Dyspnea Verified 08/07/20 14:07 wheat AdvReac Diarrhea Verified 08/07/20 14:07 Review of Systems ROS Statement: Those systems with pertinent positive or pertinent negative responses have been documented in the HPI. ROS Other: All systems not noted in ROS Statement are negative. Past Medical History Past Medical History: Asthma, CVA/TIA, GERD/Reflux, Pneumonia, Skin Disorder Additional Past Medical History / Comment(s): GRANULOMA ANNULARE (SKIN CONDITION), CHRONIC MIGRAINES; fell this summer & had MRI; it showed a minor stroke "Brain Stem, no difficiencies" no blood thinners needed. History of Any Multi-Drug Resistant Organisms: None Reported Past Surgical History: Orthopedic Surgery Additional Past Surgical History / Comment(s): KNEE AND TOE SURGERY AT 12 AND 14 YRS OLD. RT ROTATOR CUFF REPAIR 07/28/15. COLONOSCOPY, EGD Past Anesthesia/Blood Transfusion Reactions: Motion Sickness, Postoperative Nausea & Vomiting (PONV) Past Psychological History: Anxiety, Depression Smoking Status: Never smoker Past Alcohol Use History: Occasional Past Drug Use History: Marijuana - Past Family History Mother Family Medical History: Cancer Additional Family Medical History / Comment(s): BREAST AND LUNG CANCER General Exam Limitations: no limitations General appearance: alert, anxious Head exam: Present: atraumatic, normocephalic, normal inspection Eye exam: Present: normal appearance, PERRL, EOMI. Absent: scleral icterus, conjunctival injection, nystagmus, periorbital swelling ENT exam: Present: normal exam, normal oropharynx, mucous membranes moist Neck exam: Present: normal inspection, full ROM. Absent: tenderness, meningismus, lymphadenopathy, thyromegaly Respiratory exam: Present: normal lung sounds bilaterally. Absent: respiratory distress, wheezes, rales, rhonchi, stridor, decreased breath sounds Cardiovascular Exam: Present: regular rate, normal rhythm, normal heart sounds. Absent: systolic murmur, diastolic murmur, rubs, gallop, clicks, JVD GI/Abdominal exam: Present: soft, normal bowel sounds. Absent: distended, tenderness, guarding, rebound, rigid Extremities exam: Present: normal inspection, full ROM, normal capillary refill. Absent: tenderness, pedal edema, joint swelling, calf tenderness Back exam: Present: normal inspection, full ROM, CVA tenderness (R). Absent: CVA tenderness (L) Neurological exam: Present: alert, oriented X3, CN II-XII intact Psychiatric exam: Present: anxious Skin exam: Present: warm, dry, intact, normal color. Absent: rash, cyanosis, diaphoretic, pallor, mottled Course Vital Signs 08/07/20 14:05 Temperature 98.6 F Pulse Rate 67 Respiratory 20 Rate Blood Pressure 161/77 O2 Sat by Pulse 98 Oximetry Medical Decision Making - Medical Decision Making White blood cell count 6.7, potassium 3.4, urine ketones show 3+ which is likely due to dehydration from excessive vomiting. EKG with no acute changes. Patient is afebrile 98 6, she is not tachycardic with heart rate of 67 oxygen saturation 98% on room air patient feels better after Zofran, given 1 L of IV fluids 0.9 normal saline. Patient will be discharged home with instructions to return if inability to keep fluids down, abdominal pain, hematochezia or hematemesis. Patient will follow-up with Dr. Chel Wylie, this week. Case discussed with Dr. Santana who was agreeable to this plan. - Lab Data Result diagrams: 08/07/20 14:51 08/07/20 14:51 Lab Results 08/07/20 08/07/20 08/07/20 Range/Units 14:51 14:51 15:15 WBC 6.7 (3.8-10.6) k/uL RBC 3.28 L (3.80-5.40) m/uL Hgb 11.0 L (11.4-16.0) gm/dL Hct 30.7 L (34.0-46.0) % MCV 93.6 (80.0-100.0) fL MCH 33.6 (25.0-35.0) pg MCHC 35.9 (31.0-37.0) g/dL RDW 12.7 (11.5-15.5) % Plt Count 296 (150-450) k/uL MPV 6.9 Neutrophils % 78 % Lymphocytes % 13 % Monocytes % 6 % Eosinophils % 3 % Basophils % 0 % Neutrophils # 5.2 (1.3-7.7) k/uL Lymphocytes # 0.9 L (1.0-4.8) k/uL Monocytes # 0.4 (0-1.0) k/uL Eosinophils # 0.2 (0-0.7) k/uL Basophils # 0.0 (0-0.2) k/uL Sodium 137 (137-145) mmol/L Potassium 3.4 L (3.5-5.1) mmol/L Chloride 103 (98-107) mmol/L Carbon Dioxide 27 (22-30) mmol/L Anion Gap 7 mmol/L BUN 18 H (7-17) mg/dL Creatinine 1.10 H (0.52-1.04) mg/dL Est GFR (CKD-EPI)AfAm 64 (>60 ml/min/1.73 sqM) Est GFR (CKD-EPI)NonAf 55 (>60 ml/min/1.73 sqM) Glucose 110 H (74-99) mg/dL Calcium 9.8 (8.4-10.2) mg/dL Total Bilirubin 0.3 (0.2-1.3) mg/dL AST 26 (14-36) U/L ALT 16 (4-34) U/L Alkaline Phosphatase 123 (38-126) U/L Total Protein 6.9 (6.3-8.2) g/dL Albumin 4.0 (3.5-5.0) g/dL Urine Color Yellow Urine Appearance Clear (Clear) Urine pH 8.5 H (5.0-8.0) Ur Specific [place] 1.022 (1.001-1.035) Urine Protein 2+ H (Negative) Urine Glucose (UA) Negative (Negative) Urine Ketones 3+ H (Negative) Urine Blood Moderate H (Negative) Urine Nitrite Negative (Negative) Urine Bilirubin Negative (Negative) Urine Urobilinogen <2.0 (<2.0) mg/dL Ur Leukocyte Esterase Negative (Negative) Urine RBC 48 H (0-5) /hpf Urine WBC 2 (0-5) /hpf Ur Squamous Epith Cells 1 (0-4) /hpf Hyaline Casts 1 (0-2) /lpf Urine Mucus Rare H (None) /hpf - EKG Data EKG shows normal: sinus rhythm, intervals (Ventricular rate 67, VT interval 0 .13, QRS 0.84, QTC 0.43) When compared to previous EKG there are: no significant change (compared to 12/18/2019) Disposition Clinical Impression: Nausea & vomiting Disposition: HOME SELF-CARE Condition: Good Instructions (If sedation given, give patient instructions): Acute Nausea and Vomiting (ED) Additional Instructions: Increase fluid intake to 6-8 glasses of water a day. Take medication as prescribed. Return to the emergency room if you have bloody stools or bloody vomit, or abdominal pain with fevers, follow-up with the primary care doctor in 1 week Prescriptions: Ondansetron Odt [Zofran Odt] 4 mg PO Q8HR PRN #10 tab PRN Reason: Nausea Is patient prescribed a controlled substance at d/c from ED?: No Referrals: Max Wakefield MD [Primary Care Provider] - 1-2 days Time of Disposition: 15:49
[2020-08-07 14:59] LABS: Basophils % (A) 0 %; Eosinophils # (A) 0.2 k/uL (0-0.7); Eosinophils % (A) 3 %; HCT 30.7 % (34.0-46.0); Lymphocytes # (A) 0.9 k/uL (1.0-4.8); Lymphocytes % (A) 13 %; MCH 33.6 pg (25.0-35.0); MCHC 35.9 g/dL (31.0-37.0); MCV 93.6 fL (80.0-100.0); Mean Platelet Volume 6.9; Monocytes # (A) 0.4 k/uL (0-1.0); Monocytes % (A) 6 %; Neutrophils # (A) 5.2 k/uL (1.3-7.7); Neutrophils % (A) 78 %; Platelet Count 296 k/uL (150-450); RBC 3.28 m/uL (3.80-5.40); RDW 12.7 % (11.5-15.5); WBC 6.7 k/uL (3.8-10.6)
[2020-08-07 15:08] LABS: Calcium 9.8 mg/dL (8.4-10.2); Potassium 3.4 mmol/L (3.5-5.1); Total Bilirubin 0.3 mg/dL (0.2-1.3); Total Protein 6.9 g/dL (6.3-8.2)
[2020-08-07 15:32] LABS: Appearance,Urine Clear (Clear); Bilirubin,Urine Negative (Negative); Blood,Urine Moderate (Negative); Color,Urine Yellow; Glucose,Urine (UA) Negative (Negative); Hyaline Casts,Urine 1 /lpf (0-2); Ketones,Urine 3+ (Negative); Leukocyte Esterase,Urine Negative (Negative); Mucus,Urine Rare /hpf; Nitrite,Urine Negative (Negative); PH, Urine 8.5 (5.0-8.0); Protein,Urine 2+ (Negative); RBC,Urine 48 /hpf (0-5); Specific Gravity,Urine 1.022 (1.001-1.035); Squamous Epithelial Cell,Urine 1 /hpf (0-4); Urobilinogen,Urine <2.0 mg/dL (<2.0); WBC,Urine 2 /hpf (0-5)
== END 2020-08-07 16:13 | disposition home or self-care (01) ==
LOC: EC 13:59
DX: R11.2 Nausea with vomiting, unspecified (principal); K21.9 Gastro-esophageal reflux disease without esophagitis; J45.909 Unspecified asthma, uncomplicated; F32.9 Major depressive disorder, single episode, unspecified; F41.9 Anxiety disorder, unspecified; Z23 Encounter for immunization; Z79.82 Long term (current) use of aspirin; Z79.899 Other long term (current) drug therapy; Z80.1 Family history of malignant neoplasm of trachea, bronchus and lung; Z86.73 Personal history of transient ischemic attack (TIA), and cerebral infarction without residual deficits; Z88.1 Allergy status to other antibiotic agents; Z88.5 Allergy status to narcotic agent
CPT/HCPCS: 99284; 96374; 96361; 36415; 93005; 80053; 85025; 81001; J2405; 99285

== ENCOUNTER → 2020-12-21 | Outpatient (CLI) | payer OTHER ==
--- NOTE | 2020-12-21 15:26 | US ---
EXAMINATION TYPE: US abdomen complete DATE OF EXAM: 12/21/2020 COMPARISON: Renal ultrasound 04/26/2020 CLINICAL HISTORY: 60-year-old female R10.9 ABD PAIN. Intermittent abdomen pain and N/V x couple month s EXAM MEASUREMENTS: Liver Length: 16.4 cm Gallbladder Wall: 0.2 cm CBD: 5.4 mm Spleen: 8.7 cm Right Kidney: 10.0 x 4.0 x 4.4 cm Left Kidney: 9.5 x 4.8 x 4.3 cm Pancreas: Visualized pancreatic body within normal limits. The head and tail are secured by bowel ga s shadowing. Liver: wnl Gallbladder: wnl Evidence for sonographic Dahl's sign: no CBD: Upper limits of normal, acceptable given patient's age. Spleen: visualized portions wnl, limited by overlying bowel gas Right Kidney: wnl Left Kidney: wnl Upper IVC: wnl Abd Aorta: wnl IMPRESSION: Suboptimal visualization of the pancreas. Otherwise, unremarkable sonographic examination of the abdo men.
== END | disposition home or self-care (01) ==
LOC: RADUSWWP 08:04
PROVIDERS: ATTEND Family Medicine
DX: R10.9 Unspecified abdominal pain (principal)
CPT/HCPCS: 76700

== ENCOUNTER 2021-02-20 18:39 | Emergency (ER) | payer OTHER ==
[2021-02-20 20:16] VITALS: BP 150/85; PULSE 69; RESP 18; TEMP 97.7
[2021-02-20] MEDS ORDERED: MORPHINE SULFATE 4 MG/ML SYRINGE IM STA (20:34)
--- NOTE | 2021-02-20 20:39 | ED ---
General Adult HPI - General Chief complaint: Chest Pain Stated complaint: rib pain Time Seen by Provider: 02/20/21 20:30 Source: patient, RN notes reviewed, old records reviewed Mode of arrival: ambulatory Limitations: no limitations - History of Present Illness Initial comments: Well-appearing 60-year-old female presents to the emergency room with complaints of one week of right anterior rib pain. Patient states that she was leaning over a metal railing to trim her bushes and felt a pop. She states that the pain has significantly gotten worse over the past couple of days. She denies falling or any other injuries. She states that there is pain to palpation and with movement. She states that she does have a history of asthma, anxiety and depression. She denies any cough or fevers. There is no bruising or swelling -: week(s) (1) Location: chest (Right anterior ribs) Radiation: non-radiation Severity scale (1-10): 10 Consistency: constant Improves with: immobilization Worsens with: movement Associated Symptoms: denies other symptoms Treatments Prior to Arrival: none - Related Data Home Medications Medication Instructions Recorded Confirmed ALPRAZolam [Xanax] 0.5 mg PO DAILY PRN 12/18/19 07/09/20 Aspirin EC [Ecotrin Low Dose] 81 mg PO DAILY 12/18/19 07/09/20 Citalopram Hydrobromide [CeleXA] 30 mg PO DAILY 12/18/19 07/09/20 Dextromethorphan HBr/Quinidine 1 cap PO DAILY 12/18/19 07/09/20 [Nuedexta 20-10 mg Capsule] Lisinopril-Hctz 20-12.5 mg 1 tab PO DAILY 12/18/19 07/09/20 [Zestoretic 20-12.5] Multivitamins, Thera [Multivitamin 1 tab PO DAILY 12/18/19 07/09/20 (formulary)] QUEtiapine [SEROquel] 100 mg PO HS 12/18/19 07/09/20 Butalbit/Acetamin/Caff/Codeine 1 cap PO BID PRN 07/09/20 07/09/20 [Fioricet-Cod 85-886-69-30 Cap] Prochlorperazine [Compazine] 5 mg PO QID 07/09/20 07/09/20 carBAMazepine [TEGretol XR] 100 mg PO BID 07/09/20 07/09/20 carBAMazepine [TEGretol XR] 200 mg PO BID 07/09/20 07/09/20 hydrOXYzine pamoate [Vistaril] 25 mg PO TID 07/09/20 07/09/20 tiZANidine [Zanaflex] 4 mg PO BID 07/09/20 07/09/20 Previous Rx's Medication Instructions Recorded Ondansetron Odt [Zofran ODT] 4 mg PO Q8HR PRN #10 tab 07/10/20 Ondansetron Odt [Zofran Odt] 4 mg PO Q8HR PRN #10 tab 08/07/20 Allergies Allergy/AdvReac Type Severity Reaction Status Date / Time hydromorphone HCl Allergy Vomiting Verified 02/20/21 20:16 [From Dilaudid] metronidazole [From Flagyl] AdvReac Dyspnea Verified 02/20/21 20:16 wheat AdvReac Diarrhea Verified 02/20/21 20:16 Review of Systems ROS Statement: Those systems with pertinent positive or pertinent negative responses have been documented in the HPI. ROS Other: All systems not noted in ROS Statement are negative. Past Medical History Past Medical History: Asthma, CVA/TIA, GERD/Reflux, Pneumonia, Skin Disorder Additional Past Medical History / Comment(s): GRANULOMA ANNULARE (SKIN CONDITION), CHRONIC MIGRAINES; fell this summer & had MRI; it showed a minor stroke "Brain Stem, no difficiencies" no blood thinners needed. History of Any Multi-Drug Resistant Organisms: None Reported Past Surgical History: Orthopedic Surgery Additional Past Surgical History / Comment(s): KNEE AND TOE SURGERY AT 12 AND 14 YRS OLD. RT ROTATOR CUFF REPAIR 07/28/15. COLONOSCOPY, EGD Past Anesthesia/Blood Transfusion Reactions: Motion Sickness, Postoperative Nausea & Vomiting (PONV) Past Psychological History: Anxiety, Depression Smoking Status: Never smoker Past Alcohol Use History: Occasional Past Drug Use History: Marijuana - Past Family History Mother Family Medical History: Cancer Additional Family Medical History / Comment(s): BREAST AND LUNG CANCER General Exam Limitations: no limitations General appearance: alert, in no apparent distress Head exam: Present: atraumatic, normocephalic, normal inspection Eye exam: Present: normal appearance, EOMI ENT exam: Present: normal exam, mucous membranes moist. Absent: normal oropharynx Neck exam: Present: normal inspection, full ROM. Absent: tenderness, meningismus, lymphadenopathy Respiratory exam: Present: normal lung sounds bilaterally, other (Pain anterior ribs 5,6,7). Absent: respiratory distress, wheezes, rales, rhonchi, stridor Cardiovascular Exam: Present: regular rate, normal rhythm, normal heart sounds. Absent: systolic murmur, diastolic murmur, rubs, gallop, clicks GI/Abdominal exam: Present: soft, normal bowel sounds. Absent: distended, tenderness, guarding, rebound, rigid Extremities exam: Present: normal inspection, full ROM, normal capillary refill. Absent: tenderness, pedal edema, joint swelling, calf tenderness Back exam: Present: normal inspection, full ROM. Absent: tenderness, CVA tenderness (R), CVA tenderness (L), rash noted Neurological exam: Present: alert, oriented X3, normal gait Psychiatric exam: Present: normal affect, normal mood Skin exam: Present: warm, dry, intact, normal color. Absent: rash, cyanosis, diaphoretic Course Vital Signs 02/20/21 20:11 Temperature 97.7 F Pulse Rate 69 Respiratory 18 Rate Blood Pressure 150/85 O2 Sat by Pulse 96 Oximetry Medical Decision Making - Medical Decision Making This is a well-appearing 60-year-old female that presents to the emergency room with complaints of right anterior rib pain after leaning over a metal railing a week ago and felt a pop. Patient states over the past couple days she's had increased pain. She denies any cough, nausea vomiting or diarrhea. She states no fevers. X-ray of the chest shows no pleural effusion or pneumothorax, pulmonary mass or infiltrate. There is no evidence of fracture. Ultrasound of the right upper quadrant was performed due to pain, exam was limited due to overlying bowel gas. There is no focal liver defect, no gallstones or dilated ducts. This is likely musculoskeletal pain and she was given morphine and Norflex in the emergency room. She was directed to continue to take Tylenol and or Motrin [id number] for pain. Take deep breaths and cough to prevent pneumonia. Vital signs are stable Return to the emergency room with any new or worsening symptoms. Follow-up with your primary care doctor this week. Disposition Clinical Impression: Rib pain on right side Disposition: HOME SELF-CARE Condition: Good Additional Instructions: Take Tylenol and/or Motrin as needed for pain. Remember to take deep breaths and cough to prevent pneumonia. Follow-up with your primary care doctor this week. Return to the emergency room with any new or worsening symptoms. Is patient prescribed a controlled substance at d/c from ED?: No Referrals: Whitney Dick MD [Primary Care Provider] - 1-2 days Time of Disposition: 23:47
--- NOTE | 2021-02-20 20:59 | XR ---
EXAMINATION TYPE: XR ribs RT DATE OF EXAM: 02/20/2021 COMPARISON: NONE HISTORY: Right rib pain TECHNIQUE: 4 views FINDINGS: The ribs appear intact. There is no pleural effusion or pneumothorax. There is no evidence of pulmonary mass. Right lung is clear of infiltrate. IMPRESSION: Normal right rib exam.
[2021-02-20] MEDS ORDERED: ORPHENADRINE 30 MG/ML 2 ML VIAL IM STA (22:51)
--- NOTE | 2021-02-20 23:27 | US ---
EXAMINATION TYPE: US abdomen limited DATE OF EXAM: 02/20/2021 COMPARISON: US 2020 CLINICAL HISTORY: RUQ pain. RUQ pain. EXAM MEASUREMENTS: Liver Length: 15.9 cm Gallbladder Wall: 0.20 cm CBD: 0.52 cm Right Kidney: 9.6 x 5.0 x 3.9 cm Limited due to overlying bowel gas. Pancreas: Limited visibility. Liver: Slightly limited due to gas, no abnormalities seen. Gallbladder: Fold seen. Possible minimal internal echoes versus artifact seen. Evidence for sonographic Dahl's sign: Yes. CBD: Portions seen appear wnl Right Kidney: No hydronephrosis or masses seen IMPRESSION: No gallstones or dilated ducts. No focal liver defect.
== END 2021-02-21 | disposition home or self-care (01) ==
LOC: EC 18:39
DX: R07.81 Pleurodynia (principal); R10.11 Right upper quadrant pain; J45.909 Unspecified asthma, uncomplicated; K21.9 Gastro-esophageal reflux disease without esophagitis; F32.9 Major depressive disorder, single episode, unspecified; F41.9 Anxiety disorder, unspecified; F12.90 Cannabis use, unspecified, uncomplicated; Z79.82 Long term (current) use of aspirin; Z79.899 Other long term (current) drug therapy; X50.1XXA Overexertion from prolonged static or awkward postures, initial encounter
CPT/HCPCS: 71100; 76705; 99284; 96372; J2270

== ENCOUNTER 2023-06-28 19:49 | Emergency (ER) | payer OTHER ==
[2023-06-28] MEDS: KETOROLAC 15 MG/ML 1 ML VIAL IVP STA (20:24)
[2023-06-28] MEDS: ONDANSETRON 4 MG/2 ML VIAL IVP STA (20:24)
[2023-06-28] MEDS: SODIUM CHLORIDE 0.9% 1,000 ML IV STA (20:25)
--- NOTE | 2023-06-28 20:34 | ED ---
Nausea/Vomiting/Diarrhea HPI - General Chief complaint: Nausea/Vomiting/Diarrhea Stated complaint: Flu like symptoms Time Seen by Provider: 06/28/23 19:54 Source: patient Mode of arrival: ambulatory Limitations: no limitations - History of Present Illness Initial comments: 62-year-old female presenting with chief complaint of vomiting. Patient has had vomiting and diarrhea since yesterday. She also admits to headache which wraps around her head and travels into her neck and shoulders as well. She went to urgent care yesterday after burning her hand, she was tested for influenza and states that she was negative but they told her that they would treat her as influenza anyways, she was started on Tamiflu and Zofran. She took a Zofran at home today but was still unable to hold down any foods or fluids. No abdominal pain. No chest pain or difficulty breathing. No cough, congestion, sore throat, fever, chills. - Related Data Home Medications Medication Instructions Recorded Confirmed ALPRAZolam [Xanax] 0.5 mg PO BID PRN 12/18/19 04/13/22 Aspirin EC [Ecotrin Low Dose] 81 mg PO DAILY 12/18/19 04/13/22 Lisinopril-Hctz 20-12.5 mg 1 tab PO DAILY 12/18/19 04/13/22 [Zestoretic 20-12.5] QUEtiapine [SEROquel] 100 mg PO HS 12/18/19 04/13/22 Butalbit/Acetamin/Caff/Codeine 1 cap PO BID PRN 07/09/20 04/13/22 [Fioricet-Cod 95-002-20-30 Cap] tiZANidine [Zanaflex] 4 mg PO BID PRN 07/09/20 04/13/22 QUEtiapine [SEROquel] 50 mg PO HS 02/21/21 04/13/22 buPROPion XL [Wellbutrin XL] 150 mg PO DAILY 02/21/21 04/13/22 Citalopram Hydrobromide [CeleXA] 60 mg PO DAILY 04/13/22 04/13/22 Previous Rx's Medication Instructions Recorded Ondansetron Odt [Zofran Odt] 4 mg PO Q8HR PRN #30 tab 04/14/22 Pantoprazole [Protonix] 40 mg PO AC-BRKFST #30 tab 04/14/22 Allergies Allergy/AdvReac Type Severity Reaction Status Date / Time hydromorphone HCl Allergy Vomiting Verified 06/28/23 19:53 [From Dilaudid] metronidazole [From Flagyl] AdvReac Dyspnea Verified 06/28/23 19:53 morphine AdvReac Vomiting Verified 06/28/23 19:54 Morpholine Analogues AdvReac Nausea & Verified 06/28/23 19:54 Vomiting wheat AdvReac Diarrhea Verified 06/28/23 19:53 Review of Systems ROS Statement: Those systems with pertinent positive or pertinent negative responses have been documented in the HPI. ROS Other: All systems not noted in ROS Statement are negative. Past Medical History Past Medical History: CVA/TIA, GERD/Reflux, Pneumonia, Skin Disorder Additional Past Medical History / Comment(s): GRANULOMA ANNULARE (SKIN CONDITION), CHRONIC MIGRAINES; fell this summer & had MRI; it showed a minor stroke "Brain Stem, no difficiencies" no blood thinners needed. TBI from fall. History of Any Multi-Drug Resistant Organisms: None Reported Past Surgical History: Orthopedic Surgery Additional Past Surgical History / Comment(s): KNEE AND TOE SURGERY AT 12 AND 14 YRS OLD. bilat rotator cuff surgeries. COLONOSCOPY, EGD Past Anesthesia/Blood Transfusion Reactions: Motion Sickness, Postoperative Nausea & Vomiting (PONV) Past Psychological History: Anxiety, Depression Smoking Status: Vaper Past Alcohol Use History: Occasional Past Drug Use History: Marijuana - Past Family History Mother Family Medical History: Cancer Additional Family Medical History / Comment(s): BREAST AND LUNG CANCER General Exam Limitations: no limitations General appearance: alert, in no apparent distress Head exam: Present: atraumatic, normocephalic Eye exam: Present: normal appearance Neck exam: Present: normal inspection. Absent: meningismus Respiratory exam: Present: normal lung sounds bilaterally. Absent: respiratory distress, wheezes, rales, rhonchi, stridor Cardiovascular Exam: Present: regular rate, normal rhythm, normal heart sounds. Absent: systolic murmur, diastolic murmur, rubs, gallop, clicks GI/Abdominal exam: Present: soft. Absent: distended, tenderness, guarding, rebound, rigid Neurological exam: Present: alert, oriented X3 Psychiatric exam: Present: normal affect, normal mood Skin exam: Present: warm, dry Course Vital Signs 06/28/23 06/28/23 19:51 22:01 Temperature 98.7 F Pulse Rate 83 68 Respiratory 18 16 Rate Blood Pressure 154/71 140/85 O2 Sat by Pulse 96 98 Oximetry Medical Decision Making - Medical Decision Making Was pt. sent in by a medical professional or institution (ANISHA Benavides, MANAGER PHILOSOPHY, urgent care, hospital, or [facility]...) When possible be specific @ -No Did you speak to anyone other than the patient for history (EMS, parent, family, police, friend...)? What history was obtained from this source @ -No Did you review nursing and triage notes (agree or disagree)? Why? @ -I reviewed and agree with nursing and triage notes Were old charts reviewed (outside hosp., previous admission, EMS record, old EKG, old radiological studies, urgent care reports/EKG's, [facility] records)? Report findings @ -No old charts were reviewed Differential Diagnosis (chest pain, altered mental status, abdominal pain women, abdominal pain men, vaginal bleeding, weakness, fever, dyspnea, syncope, headache, dizziness, GI bleed, back pain, seizure, CVA, palpatations, mental health, musculoskeletal)? @ -Differential includes gastroenteritis, vomiting, UTI, pancreatitis, appendicitis, cholecystitis, this is not an all-inclusive list EKG interpreted by me (3pts min.). @ -As above X-rays interpreted by me (1pt min.). @ -None done CT interpreted by me (1pt min.). @ -None done U/S interpreted by me (1pt. min.). @ -None done What testing was considered but not performed or refused? (CT, X-rays, U/S, labs)? Why? @ -None What meds were considered but not given or refused? Why? @ -None Did you discuss the management of the patient with other professionals ( professionals i.e. ANISHA Benavides, MANAGER PHILOSOPHY, lab, RT, psych nurse, social work manager, conductor symphonic orchestra, teacher, chief innovation officer, pillowcase maker)? Give summary @ -No Was smoking cessation discussed for >3mins.? @ -No Was critical care preformed (if so, how long)? @ -No Were there social determinants of health that impacted care today? How? (Homelessness, low income, unemployed, alcoholism, drug addiction, transportation, low edu. Level, literacy, decrease access to med. care, retirement, rehab)? @ -No Was there de-escalation of care discussed even if they declined (Discuss DNR or withdrawal of care, Hospice)? DNR status @ -No What co-morbidities impacted this encounter? (DM, HTN, Smoking, COPD, CAD, Cancer, CVA, ARF, Chemo, Hep., AIDS, mental health diagnosis, sleep apnea, morbid obesity)? @ -None Was patient admitted / discharged? Hospital course, mention meds given and route, prescriptions, significant lab abnormalities, going to OR and other pertinent info. @ -62-year-old female present with chief complaint of nausea vomiting and diarrhea. She also admits to headache, she has history of migraines and has not been able to take her Fioricet at home due to the vomiting. This headache feels consistent with her previous migraines. History and physical exam are conducted. Lab work shows no leukocytosis or anemia. Urine shows moderate blood, on all of her previous urines in our department she has had hematuria as well. She is having no urinary symptoms. She is negative for influenza, RSV, and COVID. Amylase and lipase are WNL. BUN 31 and creatinine 1.5, consistent with patient's baseline. Patient was given Zofran, Reglan, IV fluids, Toradol, Fioricet, and Tylenol. Placement she reports significant improvement in her symptoms. She is educated on today's findings. I instructed her to follow-up with her PCP regarding hematuria. Discharged Home. Follow-up with PCP. Report back to ER with any new or worsening symptoms. Discussed return parameters and answered all questions. Patient conveyed verbal understanding and agreed to the plan. I discussed this case in detail with my attending Dr. Dudley Undiagnosed new problem with uncertain prognosis? @ -No Drug Therapy requiring intensive monitoring for toxicity (Heparin, Nitro, Insulin, Cardizem)? @ -No Were any procedures done? @ -No Diagnosis/symptom? @ -Nausea vomiting and diarrhea Acute, or Chronic, or Acute on Chronic? @ -acute Uncomplicated (without systemic symptoms) or Complicated (systemic symptoms)? @ -uncomplicated Side effects of treatment? @ -No Exacerbation, Progression, or Severe Exacerbation? @ -No Poses a threat to life or bodily function? How? (Chest pain, [place], [place], pneumonia, PE, COPD, DKA, ARF, appy, cholecystitis, CVA, Diverticulitis, Homicidal, Suicidal, threat to staff... and all critical care pts) @ -No - Lab Data Result diagrams: 06/28/23 20:29 06/28/23 20:29 Lab Results 06/28/23 06/28/23 06/28/23 Range/Units 20:29 20:29 20:29 WBC 7.5 (3.8-10.6) k/uL RBC 3.49 L (3.80-5.40) m/uL Hgb 11.5 (11.4-16.0) gm/dL Hct 33.7 L (34.0-46.0) % MCV 96.7 (80.0-100.0) fL MCH 32.9 (25.0-35.0) pg MCHC 34.0 (31.0-37.0) g/dL RDW 13.2 (11.5-15.5) % Plt Count 289 (150-450) k/uL MPV 7.8 Neutrophils % 85 % Lymphocytes % 11 % Monocytes % 3 % Eosinophils % 0 % Basophils % 0 % Neutrophils # 6.4 (1.3-7.7) k/uL Lymphocytes # 0.8 L (1.0-4.8) k/uL Monocytes # 0.2 (0-1.0) k/uL Eosinophils # 0.0 (0-0.7) k/uL Basophils # 0.0 (0-0.2) k/uL Sodium 137 (137-145) mmol/L Potassium 3.9 (3.5-5.1) mmol/L Chloride 105 (98-107) mmol/L Carbon Dioxide 22 (22-30) mmol/L Anion Gap 10 mmol/L BUN 31 H (7-17) mg/dL Creatinine 1.50 H (0.52-1.04) mg/dL Est GFR (CKD-EPI)AfAm 43 (>60 ml/min/1.73 sqM) Est GFR (CKD-EPI)NonAf 37 (>60 ml/min/1.73 sqM) Glucose 133 H (74-99) mg/dL Calcium 9.8 (8.4-10.2) mg/dL Total Bilirubin 0.6 (0.2-1.3) mg/dL AST 32 (14-36) U/L ALT 21 (4-34) U/L Alkaline Phosphatase 106 (38-126) U/L Total Protein 7.3 (6.3-8.2) g/dL Albumin 4.5 (3.5-5.0) g/dL Amylase 106 (30-110) U/L Lipase 141 (23-300) U/L Urine Color Yellow Urine Appearance Clear (Clear) Urine pH 6.0 (5.0-8.0) Ur Specific [place] 1.025 (1.001-1.035) Urine Protein 1+ H (Negative) Urine Glucose (UA) Negative (Negative) Urine Ketones 2+ H (Negative) Urine Blood Moderate H (Negative) Urine Nitrite Negative (Negative) Urine Bilirubin Negative (Negative) Urine Urobilinogen <2.0 (<2.0) mg/dL Ur Leukocyte Esterase Small H (Negative) Urine RBC 19 H (0-5) /hpf Urine WBC 3 (0-5) /hpf Ur Squamous Epith Cells 2 (0-4) /hpf Urine Bacteria Rare H (None) /hpf Hyaline Casts 9 H (0-2) /lpf Urine Mucus Rare H (None) /hpf Influenza Type A (PCR) (Not Detectd) Influenza Type B (PCR) (Not Detectd) RSV (PCR) (Not Detectd) SARS-CoV-2 (PCR) (Not Detectd) 06/28/23 Range/Units 20:29 WBC (3.8-10.6) k/uL RBC (3.80-5.40) m/uL Hgb (11.4-16.0) gm/dL Hct (34.0-46.0) % MCV (80.0-100.0) fL MCH (25.0-35.0) pg MCHC (31.0-37.0) g/dL RDW (11.5-15.5) % Plt Count (150-450) k/uL MPV Neutrophils % % Lymphocytes % % Monocytes % % Eosinophils % % Basophils % % Neutrophils # (1.3-7.7) k/uL Lymphocytes # (1.0-4.8) k/uL Monocytes # (0-1.0) k/uL Eosinophils # (0-0.7) k/uL Basophils # (0-0.2) k/uL Sodium (137-145) mmol/L Potassium (3.5-5.1) mmol/L Chloride (98-107) mmol/L Carbon Dioxide (22-30) mmol/L Anion Gap mmol/L BUN (7-17) mg/dL Creatinine (0.52-1.04) mg/dL Est GFR (CKD-EPI)AfAm (>60 ml/min/1.73 sqM) Est GFR (CKD-EPI)NonAf (>60 ml/min/1.73 sqM) Glucose (74-99) mg/dL Calcium (8.4-10.2) mg/dL Total Bilirubin (0.2-1.3) mg/dL AST (14-36) U/L ALT (4-34) U/L Alkaline Phosphatase (38-126) U/L Total Protein (6.3-8.2) g/dL Albumin (3.5-5.0) g/dL Amylase (30-110) U/L Lipase (23-300) U/L Urine Color Urine Appearance (Clear) Urine pH (5.0-8.0) Ur Specific [place] (1.001-1.035) Urine Protein (Negative) Urine Glucose (UA) (Negative) Urine Ketones (Negative) Urine Blood (Negative) Urine Nitrite (Negative) Urine Bilirubin (Negative) Urine Urobilinogen (<2.0) mg/dL Ur Leukocyte Esterase (Negative) Urine RBC (0-5) /hpf Urine WBC (0-5) /hpf Ur Squamous Epith Cells (0-4) /hpf Urine Bacteria (None) /hpf Hyaline Casts (0-2) /lpf Urine Mucus (None) /hpf Influenza Type A (PCR) Not Detected (Not Detectd) Influenza Type B (PCR) Not Detected (Not Detectd) RSV (PCR) Not Detected (Not Detectd) SARS-CoV-2 (PCR) Not Detected (Not Detectd) Disposition Clinical Impression: Nausea & vomiting, Hematuria Disposition: HOME SELF-CARE Condition: Good Instructions (If sedation given, give patient instructions): Acute Nausea and Vomiting (ED), Hematuria (ED) Additional Instructions: Follow-up with your PCP regarding today's symptoms and blood noted in your urine. Report back to ER with any new or worsening symptoms. Is patient prescribed a controlled substance at d/c from ED?: No Referrals: Tevin Hdez MD [Primary Care Provider] - 1-2 days Time of Disposition: 21:32
[2023-06-28 20:35] VITALS: TEMP 98.7
[2023-06-28 20:40] LABS: Basophils % (A) 0 %; Eosinophils % (A) 0 %; HCT 33.7 % (34.0-46.0); HGB 11.5 gm/dL (11.4-16.0); Lymphocytes # (A) 0.8 k/uL (1.0-4.8); Lymphocytes % (A) 11 %; MCH 32.9 pg (25.0-35.0); MCV 96.7 fL (80.0-100.0); Mean Platelet Volume 7.8; Monocytes # (A) 0.2 k/uL (0-1.0); Monocytes % (A) 3 %; Neutrophils # (A) 6.4 k/uL (1.3-7.7); Neutrophils % (A) 85 %; Platelet Count 289 k/uL (150-450); RBC 3.49 m/uL (3.80-5.40); RDW 13.2 % (11.5-15.5); WBC 7.5 k/uL (3.8-10.6)
[2023-06-28 20:42] LABS: Appearance,Urine Clear (Clear); Bacteria,Urine Rare /hpf; Bilirubin,Urine Negative (Negative); Blood,Urine Moderate (Negative); Color,Urine Yellow; Glucose,Urine (UA) Negative (Negative); Hyaline Casts,Urine 9 /lpf (0-2); Ketones,Urine 2+ (Negative); Leukocyte Esterase,Urine Small (Negative); Mucus,Urine Rare /hpf; Nitrite,Urine Negative (Negative); Protein,Urine 1+ (Negative); RBC,Urine 19 /hpf (0-5); Specific Gravity,Urine 1.025 (1.001-1.035); Squamous Epithelial Cell,Urine 2 /hpf (0-4); Urobilinogen,Urine <2.0 mg/dL (<2.0); WBC,Urine 3 /hpf (0-5)
[2023-06-28 21:05] LABS: ALT 21 U/L (4-34); AST 32 U/L (14-36); African American GFR (CKD) 43 (>60 ml/min/1.73 sqM); Albumin 4.5 g/dL (3.5-5.0); Alkaline Phosphatase 106 U/L (38-126); Amylase 106 U/L (30-110); Anion Gap 10 mmol/L; Blood Urea Nitrogen 31 mg/dL (7-17); Calcium 9.8 mg/dL (8.4-10.2); Carbon Dioxide 22 mmol/L (22-30); Chloride 105 mmol/L (98-107); Glucose 133 mg/dL (74-99); Lipase 141 U/L (23-300); Non-African American GFR(CKD) 37 (>60 ml/min/1.73 sqM); Potassium 3.9 mmol/L (3.5-5.1); Sodium 137 mmol/L (137-145); Total Bilirubin 0.6 mg/dL (0.2-1.3); Total Protein 7.3 g/dL (6.3-8.2)
[2023-06-28] MEDS: ACETAMINOPHEN TAB 325 MG TAB PO STA (21:40)
[2023-06-28] MEDS: BUTALB/APAP/CAFF 50-325-40MG TAB PO STA (21:53)
[2023-06-28] MEDS: METOCLOPRAMIDE 5 MG/ML 2 ML VIAL IVP STA (21:54)
[2023-06-28 22:15] VITALS: BP 140/85; PULSE 68; RESP 16
== END 2023-06-28 22:03 | disposition home or self-care (01) ==
LOC: EC 19:49
DX: R31.9 Hematuria, unspecified (principal); R11.2 Nausea with vomiting, unspecified; F17.290 Nicotine dependence, other tobacco product, uncomplicated; F12.90 Cannabis use, unspecified, uncomplicated; Z88.5 Allergy status to narcotic agent; Z91.018 Allergy to other foods; Z88.8 Allergy status to other drugs, medicaments and biological substances; Z88.1 Allergy status to other antibiotic agents
CPT/HCPCS: 36415; 80053; 82150; 83690; 85025; 81001; 87636; 99284; 96374; 96375 ×2; 96361; J2765; J2405; J1885

== ENCOUNTER → 2024-02-18 | Outpatient (CLI) | payer MEDICARE ==
--- NOTE | 2024-02-20 22:46 | US ---
EXAMINATION TYPE: US kidneys/renal and bladder DATE OF EXAM: 02/18/2024 COMPARISON: CT & US CLINICAL INDICATION: Female, 63 years old with history of N18.32 CKD, 3B; CKD TECHNIQUE: Grayscale imaging of the bilateral kidneys and urinary bladder: FINDINGS: EXAM MEASUREMENTS: Right Kidney: 9.1 x 3.7 x 4.7 cm Left Kidney: 9.0 x 4.4 x 4.5 cm Right Kidney: No evidence of hydro, small in size Left Kidney: No evidence of hydro, small in size Bladder: wnl Bilateral Jets seen: Yes IMPRESSION: 1. Normal renal ultrasound [facility] Kianna Alas, , 02/20/2024 10:44 PM
== END | disposition home or self-care (01) ==
LOC: RADUSWWP 14:43
PROVIDERS: ATTEND Internal Medicine
DX: N18.32 Chronic kidney disease, stage 3b (principal)
CPT/HCPCS: 76770